=== PATIENT | female | born 1940 | race Caucasian/White ===

== ENCOUNTER 2020-08-25 20:15 | Emergency (ER) | payer MEDICARE, OTHER, SELFPAY ==
[2020-08-25 20:17] VITALS: BP 154/94; PULSE 110; RESP 20; TEMP 36.1; O2SAT 93; BMI 27.3
--- NOTE | 2020-08-25 20:45 | ED.DCSUM_ITS ---
History of Present Illness Chief Complaint: Female C/O Detail of Chief Complaint: Vaginal irritation and blood running down her leg Informant: Patient, Family Onset: Weeks - Is had several episodes of the last several weeks. Context: Sudden Onset Timing: Intermittent Quality: Intermittent bleeding Location: Vagina Current Severity: Mild Maximum Severity: Moderate Worsened by: Patient believes she has a bacterial vaginosis infection Relieved by: Nothing Associated Symptoms: No fever, night sweats, weight loss. Not sexually active Narrative: Patient is an 79-year-old woman status post hysterectomy many years ago for abnormal vaginal bleeding. She was seen earlier this month by the nurse practitioner at the [facility]. Culture was obtained that was consistent with bacterial vaginosis infection. Patient presents because she had blood running down her leg. She denies dysuria, frequency, urgency or hematuria. She denies history of STD. She denies abdominal pain. She denies low back pain. She states the practitioner who saw her did not do a pelvic exam. 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 (4) Type II diabetes mellitus Status: Chronic Past Medical History - Allergies and Home Meds Allergies/Adverse Reactions: Allergies No Known Allergies Allergy (Verified 08/25/20 20:17) Primary Care Physician: Sandra Carter MD [Primary Care Provider] - Pia Braton MD [STAFF PHYSICIAN] - 1 Day for another exam Prior records reviewed: Yes Surgical History: cholecystectomy, hysterectomy Lives: Alone Smoking Status: Unknown if ever smoked Alcohol: None Drugs: None Review of Systems General: Denies: Chills, Fever, Malaise, Subjective, Sweats Eyes: Denies: Visual changes - bilaterally, Blurred Vision - bilaterally ENT: Denies: Rhinorrhea, Sore throat Cardiovascular: Denies: Chest pain, Palpitations Respiratory: Denies: Dyspnea, Cough, Dyspnea on exertion Gastrointestinal: Denies: Abdominal pain, Nausea, Vomiting, Diarrhea Genitourinary: Denies: Dysuria, Hematuria, Frequency Musculoskeletal: Denies: Myalgias, Arthralgias, Neck pain, Back pain, Swelling, Extremity Pain Skin: Denies: Rash, Wounds Neurological: Denies: Headache, Weakness Endocrine: Denies: Polyuria Hematologic: Denies: Easy bruising, Easy bleeding Physical Exam Vital Signs/Narrative: Vital Signs Temp Pulse Resp BP Pulse Ox 08/25/20 20:17 97.0 F L 110 H 20 H 154/94 H 93 Inital Vital Signs reviewed: Yes General: Well nourished, Well developed, No Acute Distress Head: Normocephalic, Atraumatic Eyes: Perrl, EOMI. Negative for: Pale conjunctiva, Scleral icterus ENT: Moist mucous membranes, No rhinorrhea Neck: Supple, Nontender, No lymphadenopathy Cardiovascular: Regular rhythm, No murmurs, Normal S1, Normal S2, Tachycardia Respiratory: No distress, CTA bilaterally, Chest nontender Abdomen: Soft, Nontender, Nondistended, Normal bowel sounds Rectal: Deferred : - - Labia minora are red with ulcerative weepy lesions and are brawny/hard. Patient had significant discomfort on digital exam and speculum exam. There are areas of necrosis involving the labia majora. Back: Nontender, Normal Inspection Extremities: Nontender, No edema Skin: Normal color, No rash Neurological: Alert, Oriented x3, Cranial nerves II-XII grossly intact, Normal Strength, Normal Sensation Psychological: Normal affect Diagnostic/Tx/Re-eval Laboratory Results 08/25/20 08/25/20 20:40 20:40 WBC 10.5 RBC 4.26 Hgb 12.5 Hct 37.1 MCV 87.1 MCH 29.3 MCHC 33.7 RDW Std Deviation 45.8 H RDW Coeff of Carlos 14.5 Plt Count 309 MPV 8.9 Immature Gran % (Auto) 0.500 Neut % (Auto) 63.9 Lymph % (Auto) 21.5 [place] % (Auto) 9.7 Eos % (Auto) 4.0 Baso % (Auto) 0.4 Absolute Neuts (auto) 6.7 Absolute Lymphs (auto) 2.26 Nucleated RBC % 0 Sodium 141 Potassium 3.5 Chloride 104 Carbon Dioxide 29.0 Anion Gap 8 BUN 31 H Creatinine 1.39 H Estim Creat Clear Calc 27.41 Est GFR (MDRD) Af Amer 47 L Est GFR (MDRD) Non-Af 39 L BUN/Creatinine Ratio 22.3 H Glucose 211 H Calcium 9.1 Total Bilirubin 0.30 AST 12 L ALT 15 Alkaline Phosphatase 73 Total Protein 6.9 Albumin 3.1 L Globulin 3.8 Albumin/Globulin Ratio 0.8 L CBC is unremarkable. Comprehensive metabolic panel was marked for a creatinine of 1.39. Blood sugar is elevated 211. - Medical Decision Making Blood work was obtained since she has no records of being in the emergency department since 2019. Blood work that was performed earlier this month revealed normal AST, ALT, alk phos and calcium. Blood sugar was elevated 202 with a normal CO2 and anion gap. Creatinine was slightly elevated 1.32. Based on examination findings spoke with the vice president of human resources on-call for the [facility] Dr. Pia Pastrana. She requested the patient call the office at 8 AM. Someone will see her and perform appropriate biopsies. ED Disposition - Plan for ED Patient: Disposition: Home or Assisted Living Diagnosis: Abnormal vaginal bleeding in postmenopausal patient, Necrotic vaginal lesions suspect neoplas, Elevated serum creatinine, Hyperglycemia due to type 2 diabetes mellitus Instructions: ED Diabetic Hyperglycemia, ED Renal Insufficiency Prescriptions: Hydrocodone Bitart/Apap 5-325 [[place] 5MG-325MG] 1 tab PO Q6H PRN PRN 3 Days #10 tab PRN Reason: Pain Prescription Printed Referrals: Sandra Carter MD [Primary Care Provider] - Pia Barton MD [STAFF PHYSICIAN] - 1 Day for another exam Additional Instructions: Call office at 8 AM to be seen tomorrow for examination and biopsy
[2020-08-25 20:46] LABS: Absolute Lymphocyte Count 2.26 X10^3/uL (0.83-4.51); Absolute Neutrophil Count 6.7 X10^3/uL (2.0-7.7); Basophil# 0.04 X10^3/uL; Basophil% 0.4 % (0-1); Eosinophil# 0.42 X10^3/uL; Hematocrit 37.1 % (37-47); Hemoglobin 12.5 g/dL (12.0-15.0); Lymphocyte # 2.26 X10^3/ul (4.0); Lymphocyte % 21.5 % (19-41); Mean Corp Hgb Conc 33.7 g/dL (32-36); Mean Corpuscular Hgb 29.3 pg (27.0-32.0); Mean Corpuscular Volume 87.1 fL (81-99); Mean Platelet Vol. 8.9 fl (6.2-12.0); Monocyte# 1.02 X10^3/uL; Monocyte% 9.7 % (0-10); NRBC Flagged by Analyzer 0 % (0-5); Neutrophil # 6.71 X10^3/uL (2.7-7.7); Neutrophil % 63.9 % (47-70); Platelet Count 309 K/mm3 (150-450); RBC Distribution Width CV 14.5 % (11.6-14.6); RBC Distribution Width SD 45.8 fl (35.1-43.9); Red Blood Count 4.26 M/mm3 (4.2-5.4); White Blood Count 10.5 K/mm3 (4.4-11.0)
[2020-08-25 21:15] LABS: ALB/GLOB Ratio 0.8 RATIO (0.9-2.4); AST(SGOT) 12 U/L (15-37); Alanine Aminotransfer ALT/SGPT 15 U/L (13-56); Albumin, Serum 3.1 g/dL (3.2-5.0); Alkaline Phosphatase 73 U/L (45-117); Anion Gap 8 (5-15); BUN 31 mg/dL (7-18); BUN/Creat Ratio 22.3 RATIO (10-20); Calcium,Total 9.1 mg/dL (8.5-10.1); Chloride 104 mmol/L (98-107); Creatinine, Serum 1.39 mg/dL (0.55-1.02); EST Glomerular Filtration Rate 39 mL/min (>60); Est Glom Filt Rate - Afr Amer 47 mL/min (>60); Estimated Creatinine Clearance 27.41 ml/min; Globulin 3.8 g/dL (2.2-4.2); Glucose 211 mg/dL (74-106); Potassium 3.5 mmol/L (3.5-5.1); Protein, Total 6.9 g/dL (6.4-8.2); Sodium Level 141 mmol/L (136-145)
[2020-08-25] MEDS: Morphine 4 MG/ML Syringe IV (21:21)
[2020-08-25] MEDS: Ondansetron 4 MG/2 ML Vial IV (21:21)
[2020-08-25 21:44] VITALS: PULSE 92; RESP 14; O2SAT 98
== END 2020-08-25 21:46 | disposition home or self-care (01) ==
LOC: ED 21:02
PROVIDERS: Emergency Provider Emergency Medicine; PCP Internal Medicine
DX: N89.8 Other specified noninflammatory disorders of vagina (principal); N95.0 Postmenopausal bleeding; E11.65 Type 2 diabetes mellitus with hyperglycemia; E78.5 Hyperlipidemia, unspecified; Z85.528 Personal history of other malignant neoplasm of kidney; Z85.51 Personal history of malignant neoplasm of bladder; Z90.710 Acquired absence of both cervix and uterus
CPT/HCPCS: 80053; 85025; 96374; 96375; 99283; A4216; J2405

== ENCOUNTER 2020-08-28 12:33 | Emergency (ER) | payer MEDICARE, OTHER, SELFPAY ==
[2020-08-28 12:34] VITALS: BP 127/70; PULSE 100; RESP 17; TEMP 35.9; O2SAT 96; BMI 28.1
--- NOTE | 2020-08-28 12:52 | ED.DCSUM_ITS ---
History of Present Illness Chief Complaint: Vag Bleeding Informant: Patient, Family Onset: Days Context: Sudden Onset Timing: Intermittent, Waxes and wanes Quality: Bright red blood from vagina that started early this morning Location: Vagina Current Severity: Mild Maximum Severity: Moderate Worsened by: Suspected CVA Relieved by: Nothing Associated Symptoms: Pain Narrative: Patient is an elderly woman who was seen on Wednesday by me. She had minimal vaginal bleeding at that time. She did keep her appointment to be seen on Wednesday by KNOWLEDGE MANAGEMENT CONSULTANT for biopsy. Apparently she was in significant pain and biopsy was not performed. Plan was to perform biopsy under anesthesia. Patient presents because she had spontaneous bleeding that started early this morning. She awoke with blood. She has used several pads. States the pads are saturated. There is no passage of clots. She is complaining of increased pain. She is present on [place] and states the [place] is not controlling the pain. She denies orthostatic symptoms. 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 (4) Type II diabetes mellitus Status: Chronic Past Medical History - Allergies and Home Meds Allergies/Adverse Reactions: Allergies No Known Allergies Allergy (Verified 08/28/20 12:34) Primary Care Physician: Sandra Carter MD [Primary Care Provider] - Prior records reviewed: Yes Surgical History: cholecystectomy, hysterectomy Lives: With Family Smoking Status: Unknown if ever smoked Alcohol: None Drugs: None Review of Systems General: Denies: Chills, Fever, Malaise Eyes: Denies: Visual changes - bilaterally, Blurred Vision - bilaterally ENT: Denies: Rhinorrhea, Sore throat Cardiovascular: Denies: Chest pain, Palpitations Respiratory: Denies: Dyspnea, Cough, Dyspnea on exertion Gastrointestinal: Denies: Abdominal pain, Nausea, Vomiting, Diarrhea Genitourinary: Reports: - - Does report bleeding from her vagina.. Denies: Dysuria, Hematuria, Frequency Musculoskeletal: Denies: Myalgias, Arthralgias, Neck pain, Back pain, Swelling, Extremity Pain Skin: Reports: Wounds. Denies: Rash Neurological: Denies: Headache, Weakness Hematologic: Denies: Easy bruising, Easy bleeding Physical Exam Vital Signs/Narrative: Vital Signs Temp Pulse Resp BP Pulse Ox 08/28/20 12:34 96.6 F L 100 17 127/70 H 96 Inital Vital Signs reviewed: Yes General: Well nourished, Well developed, Acute Distress Head: Normocephalic, Atraumatic Eyes: Perrl, EOMI ENT: Moist mucous membranes, No rhinorrhea Neck: Supple, Nontender, No lymphadenopathy, No JVD Cardiovascular: Regular rate, Regular rhythm, No murmurs, Normal S1, Normal S2 Respiratory: No distress, CTA bilaterally, Chest nontender Abdomen: Soft, Nontender, Nondistended, Normal bowel sounds, No masses : - - Sooner genitalia reveals abnormal appearing labia, introitus with bleeding noted. Her pad is saturated. There is no clots. Back: Nontender, Normal Inspection Extremities: Nontender, No edema Skin: Normal color, No rash Neurological: Alert, Oriented x3, Cranial nerves II-XII grossly intact, Normal Strength, Normal Sensation Psychological: Normal affect, Normal Mood Diagnostic/Tx/Re-eval Laboratory Results 08/28/20 14:00 WBC 9.6 RBC 4.22 Hgb 12.3 Hct 37.4 MCV 88.6 MCH 29.1 MCHC 32.9 RDW Std Deviation 45.5 H RDW Coeff of Carlos 14.2 Plt Count 278 MPV 8.8 H&H is stable. The marketing copywriter for the clinic clinic was paged at 1400. I was informed at 1620 that Amira Flores did call back. A call is now been placed to the marketing copywriter is on-call Patient had continued pain and no relief after 4 morphine. Additional 4 mg of morphine was administered. - Medical Decision Making CBC without differential was obtained to compare H&H and determine if there is a drop in her H&H. Once the H&H has returned we will contact HONING JOB SETTER on-call to determine disposition and plan regarding pain management and bleeding. The nurse practitioner on-call for [employer] did call back, Amira Jewell. She contacted the marketing copywriter who saw her. Spoke with her. Plan is to discharge to home with lidocaine jelly and keep appointment for surgery next week. ED Disposition - Plan for ED Patient: Disposition: Home or Assisted Living Diagnosis: Abnormal vaginal bleeding in postmenopausal patient, Cancer of labia minora Instructions: ED Tumor, Uncertain Cause Prescriptions: Oxycodone HCl/Acetaminophen [Percocet 5/325] 1 tablet PO Q6H PRN PRN 5 Days #20 tablet PRN Reason: Vaginal pain Transmission Status: Sent to [id number] Referrals: Sandra Carter MD [Primary Care Provider] - Staci Bartlett DO [STAFF PHYSICIAN] - Keep Rocco appointment
[2020-08-28] MEDS: Ondansetron 4 MG/2 ML Vial IV (14:04)
[2020-08-28] MEDS: Morphine 4 MG/ML Syringe IV ×2 (14:04→15:41)
--- NOTE | 2020-08-28 14:04 | ED.RN ---
[facility] frozen when trying to sign for documentation of medications, had to redocument meds.
[2020-08-28 14:08] LABS: Hematocrit 37.4 % (37-47); Hemoglobin 12.3 g/dL (12.0-15.0); Mean Corp Hgb Conc 32.9 g/dL (32-36); Mean Corpuscular Hgb 29.1 pg (27.0-32.0); Mean Corpuscular Volume 88.6 fL (81-99); Mean Platelet Vol. 8.8 fl (6.2-12.0); Platelet Count 278 K/mm3 (150-450); RBC Distribution Width CV 14.2 % (11.6-14.6); RBC Distribution Width SD 45.5 fl (35.1-43.9); Red Blood Count 4.22 M/mm3 (4.2-5.4); White Blood Count 9.6 K/mm3 (4.4-11.0)
--- NOTE | 2020-08-28 16:13 | NURSING ---
[address] LOPEZ [phone] LOPEZ [address] CASTRO SHOULD CALL SOON. SHE'S WITH A PATIENT
--- NOTE | 2020-08-28 16:27 | NURSING ---
DR MATTHEW MUÑIZ
[2020-08-28 17:30] VITALS: BP 164/94; PULSE 100; RESP 16; O2SAT 95
--- NOTE | 2020-08-28 17:31 | ED.RN ---
IV DC'ED, CATHETER INTACT, SMALL GAUZE DRESSING PLACED. DISCHARGE INSTRUCTIONS GIVEN TO AND REVIEWED WITH PATIENT, PATIENT DENIES QUESTIONS OR CONCERNS AND VOICES UNDERSTANDING OF DISCHARGE INSTRUCTIONS. PT TO PRIVATE VEHICLE VIA WHEELCHAIR.
== END 2020-08-28 17:32 | disposition home or self-care (01) ==
PROVIDERS: Emergency Provider Emergency Medicine; PCP Internal Medicine
DX: C51.1 Malignant neoplasm of labium minus (principal); N95.0 Postmenopausal bleeding; E11.9 Type 2 diabetes mellitus without complications; E78.5 Hyperlipidemia, unspecified; Z79.899 Other long term (current) drug therapy; Z85.51 Personal history of malignant neoplasm of bladder; Z85.528 Personal history of other malignant neoplasm of kidney
CPT/HCPCS: 85027; 96374; 96375; 96376; 99283; A4216; J2405

== ENCOUNTER 2020-09-05 08:13 | Day surgery (SDC) | payer MEDICARE, OTHER, SELFPAY ==
--- NOTE | 2020-09-02 17:55 | PCM.HPOB.BLA ---
- Problem List (1) Vulvar pain Status: Acute History and Physical Date of Admission: 09/05/20 Irish Monzon is a 79 year old female who presents for problem visit?vulvar pain.? ? HPI:? ? She is here today with her daughter and POA.? ? Has had vaginal pain and bleeding for 3 weeks. She feels as if her vagina is sore and raw. She notes dysuria and hematuria as well.?On last day of antibiotics for UTI per PCP.?Pain is worse with sitting. She went into the ED last night and was given morphine for the pain. She reports in the ER they were able to complete an exam after she was given pain medication, and a vaginal mass was noted. Not currently sexually active. Recently saw a microbiology manager for this and was screened for infection - she screened positive for BV. H/o bladder cancer and h/o hysterectomy. Has diabetes?and she recently stopped all medications. The patient lives alone at home. ? PAST MEDICAL HISTORY PAST MEDICAL HISTORY Diagnosis Date ? Abnormal mammogram ? ? Bladder cancer (HCC) 2009 ? Depression ? ? Diabetes mellitus without mention of complication ? ? Diabetes mellitus ? Gastroesophageal reflux disease without esophagitis ? ? GERD (gastroesophageal reflux disease) ? ? Hematuria ? ? Hemorrhoids ? ? Hypercholesteremia ? ? Hypomagnesemia ? ? Insomnia ? ? Migraine ? ? Non-compliance ? ? Osteoarthritis of both knees ? ? PND (post-nasal drip) ? ? Stage 2 chronic kidney disease ? ? tachycardia ? ? Trigger finger ? ? Unspecified essential hypertension ? ? Essential hypertension ? Vitamin D deficiency ? PAST SURGICAL HISTORY PAST SURGICAL HISTORY Procedure Laterality Date ? BIOPSY OF KIDNEY,OPEN EXPOS ? 1982 ? ESOPHAGOGASTRIC FUNDOPLASTY ? ? ? HEMORRHOIDECTOMY ? 1994 ? OTHER ? 2009 ? bladder tumor removal ? OTHER SURGICAL HISTORY (PLEASE SPECIFY) HX Left ? ? left renal stent ? SC ANESTH,REPAIR UPPER ABD HERNIA NOS ? 1995/1996 ? SC ANESTH,VAGINAL HYSTERECTOMY ? ? ? REMOVAL GALLBLADDER ? ? ? REPAIR INCISIONAL HERNIA,REDUCIBLE ? ? ? Hernia repair, incisional - laparoscopic ? TOTAL KNEE REPLACEMENT Left 2003 FAMILY HISTORY FAMILY HISTORY Problem Relation Age of Onset ? Stroke Father ? SOCIAL HISTORY Social History ? Tobacco Use ? Smoking status: Never Smoker ? Smokeless tobacco: Never Used Substance Use Topics ? Alcohol use: No ? Drug use: No CURRENT MEDICATIONS Current Outpatient Medications Medication Sig ? metroNIDAZOLE (FLAGYL) 500 mg tablet Take 1 tablet by mouth twice daily for 7 days. ? nitrofurantoin monohydrate and macrocrystal (MACROBID) 100 mg capsule Take 1 capsule by mouth twice daily with meals for 7 days. ? amitriptyline (ELAVIL) 100 mg tablet Take 100 mg by mouth daily at bedtime. ? ? lidocaine 4 % gel 1 application of small amount to affected area up to 7 times a day as needed for pain control. ? DIFLUCAN 150 mg tablet Take 1 tablet by mouth once daily for 2 days. Take 1 pill now and then take additional pill 3 days later (Patient not taking: Reported on 08/26/2020 ) ? pioglitazone (ACTOS) 15 mg tablet Take 1 tablet by mouth once daily. (Patient not taking: Reported on 08/21/2020 ) ? LIPITOR 10 MG TAB Take one(1) tablet daily. ? PREVACID 30 MG CAP Take one(1) tablet daily. ? HYDROCHLOROTHIAZIDE 25 MG TAB Take one(1) tablet daily. ? LEXAPRO 10 MG TAB Take one(1) tablet daily. ? GLIPIZIDE SR 2.5 MG TAB Take one(1) tablet daily. ? No current facility-administered medications for this visit. Allergies As of Date: 08/26/2020 (No Known Allergies) Fully Assessed ?08/21/2020 ? ? REVIEW OF SYSTEMS Abdomen:?No abdominal pain, nausea, vomiting.? Bladder:?+Dysuria.? Expanded ROS:?No fevers or chills.? Allergies and current medication updated:Yes ? EXAM:?Wt 164 lb (74.4kg)? ? ? GENERAL:?pleasant,??female in no apparent distress CHEST:?Normal inspiratory effort PELVIC:?Limited exam. Unable to touch patient due to pain. Bilateral labia majora and minora are swollen, erythematous with several small ulcerations present. There is a thick white plaque noted along the right labia minora.? NEURO:?exam grossly non-focal EXTREMITIES:?normal ? ASSESSMENT AND PLAN:?? Encounter Diagnosis ? ? ICD-10-CM ? 1. Vulvar pain R10.2 lidocaine 4 % gel 2. Vulvar lesion N90.89 lidocaine 4 % gel 3. Vulvar ulceration N76.6 ? 4. Vaginal bleeding N93.9 ? ER visit reviewed. Discussed patient with CNM who evaluated the patient as well. ? Discussed vulvar care and hygiene measure. ?Reviewed using warm compresses and warm soaks, ice packs PRN, lidocaine gel PRN, dermoplast PRN, barrier ointment. ? Discussed possible etiologies. WBC normal in ED. Afebrile. To start Flagyl for BV. Concern for malignancy based on exam and discussed this with pt and POA. Unable to perform biopsies today due to pain. Discussed EUA, vulvar biopsies, and possible vaginal biopsies in OR including r/b/a. Consent signed by POA and patient and POA would like to proceed with surgery. Discussed will need medical clearance from PCP. Will route chart to PCP and to schedule surgery once cleared. ? Her daughter is to fax over POA information.? ? Staci Bartlett,?DO
[2020-09-04 11:45] LABS: Hematocrit 38.6 % (37-47); Hemoglobin 12.5 g/dL (12.0-15.0); Mean Corp Hgb Conc 32.4 g/dL (32-36); Mean Corpuscular Hgb 29.2 pg (27.0-32.0); Mean Corpuscular Volume 90.2 fL (81-99); Platelet Count 305 K/mm3 (150-450); RBC Distribution Width CV 14.6 % (11.6-14.6); RBC Distribution Width SD 47.7 fl (35.1-43.9); Red Blood Count 4.28 M/mm3 (4.2-5.4); White Blood Count 10.9 K/mm3 (4.4-11.0)
[2020-09-04 12:15] LABS: ALB/GLOB Ratio 0.8 RATIO (0.9-2.4); AST(SGOT) 23 U/L (15-37); Alanine Aminotransfer ALT/SGPT 29 U/L (13-56); Albumin, Serum 3.3 g/dL (3.2-5.0); Alkaline Phosphatase 79 U/L (45-117); Anion Gap 6 (5-15); BUN 26 mg/dL (7-18); BUN/Creat Ratio 17.9 RATIO (10-20); Calcium,Total 9.2 mg/dL (8.5-10.1); Chloride 104 mmol/L (98-107); Creatinine, Serum 1.45 mg/dL (0.55-1.02); EST Glomerular Filtration Rate 37 mL/min (>60); Est Glom Filt Rate - Afr Amer 45 mL/min (>60); Globulin 3.9 g/dL (2.2-4.2); Glucose 172 mg/dL (74-106); Protein, Total 7.2 g/dL (6.4-8.2); Sodium Level 137 mmol/L (136-145)
[2020-09-05] VITALS (13 sets, daily range): BP systolic 110–157; BP diastolic 65–85; PULSE 94–116; RESP 12–18; TEMP 37–37.7; O2SAT 91–99; BMI 27.6
--- NOTE | 2020-09-05 | IMM_PTH ---
PATIENT: FRANCES EVANGELISTA LOC: [facility] [place] U#:[id number] AGE/SX: 79/F ROOM: RE09/05/[address]: Dr. Staci Bartlett DO : 1940 BED: DIS: 09/05/2020 SPEC #: [id number] RECD: 09/06/20 15:24 STATUS: LATRICIA REQ #: [id number] DEIDRE: 09/05/20 00:[address]: Staci Bartlett DEPT: IMMUNOHISTOCHEMISTRY RECD BY: Eden Jimenez ENTERED: 09/06/20 15:25 SP TYPE: IMMUNO OTHR DR: Dr. Sandra Carter MD Tissues: B - Labium majus Procedures: p16 (initial) PHYSICIAN & INSTITUTION [place] [address] SPECIMEN INFORMATION: Tissue Source: B - Right labia majora Clinical Info: Vulvar pain Specimen Number: [id number] Radha CPT code: 78188 METHODOLOGY: Deparaffinized sections of prefer/formalin-fixed tissue or PAP/DQ stained slides are incubated with monoclonal/polyclonal antibodies/oligonucleotide probes. Localization is made via biotin free immunoperoxidase method. Appropriate controls are performed and reacted as expected. Results on target cell population are indicated in the following table: RESULTS: ANTIBODY / CLONE RESULT Block B P16 (E6H4) negative These tests were developed and their performance characteristics determined by [facility]. They may not have been cleared or approved by the U.S. Food and Drug Administration. The FDA has determined that such clearance or approval is not necessary. The above immunohistochemical/dualISH markers are ordered and reviewed by the Pathologist. INTERPRETATION: B. 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 DEANDRE:carson 09/09/2020
--- NOTE | 2020-09-05 | IMM_PTH ---
PATIENT: FRANCES EVANGELISTA LOC: [facility] [place] U#:[id number] AGE/SX: 79/F ROOM: RE09/05/[address]: Dr. Staci Bartlett DO : 1940 BED: DIS: 09/05/2020 SPEC #: [id number] RECD: 09/06/20 15:24 STATUS: LATRICIA REQ #: [id number] DEIDRE: 09/05/20 00:[address]: Staci Bartlett DEPT: IMMUNOHISTOCHEMISTRY RECD BY: Eden Jimenez ENTERED: 09/06/20 15:25 SP TYPE: IMMUNO OTHR DR: Dr. Sandra Carter MD Tissues: B - Labium majus Procedures: p16 (initial) PHYSICIAN & INSTITUTION [place] [address] SPECIMEN INFORMATION: Tissue Source: B - Right labia majora Clinical Info: Vulvar pain Specimen Number: [id number] B CPT code: 85292 METHODOLOGY: Deparaffinized sections of prefer/formalin-fixed tissue or PAP/DQ stained slides are incubated with monoclonal/polyclonal antibodies/oligonucleotide probes. Localization is made via biotin free immunoperoxidase method. Appropriate controls are performed and reacted as expected. Results on target cell population are indicated in the following table: RESULTS: ANTIBODY / CLONE RESULT Block B P16 (E6H4) positive, focal minimal patchy staining These tests were developed and their performance characteristics determined by [facility]. They may not have been cleared or approved by the U.S. Food and Drug Administration. The FDA has determined that such clearance or approval is not necessary. The above immunohistochemical/dualISH markers are ordered and reviewed by the Pathologist. INTERPRETATION: B. 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 Tiffany 09/09/2020 DEANDRE:carson 09/17/2020 Case has been reviewed in consultation with Dr. Hendrickson who concurs with the above diagnosis. IDC:AM
[2020-09-05 09:01] LABS: Bedside Glucose 182 mg/dL (70-110)
[2020-09-05] MEDS: Lactated Ringers 1,000 ML 100 ML IV (09:11)
--- NOTE | 2020-09-05 09:30 | DCINST_ITS ---
- Discharge Diagnoses Current Active Problems: Current Active and Chronic Problems Vulvar pain (Acute) You will use the following diet at home:: No restrictions Your food should be the consistency of: Regular Discharge Activity: May Shower, May Take a Tub Bath May resume sexual activity in: 1 week - nothing in the vagina for 1 week Ice area for (Minutes): 15 Weight Bearing Status: Weight bearing as tolerated Lifting Restrictions: None Call your doctor if your incision/area has: Sudden Increased Bleeding, Increased Pain/ Swelling, Increased Redness, Foul Smelling Discharge, Swelling at the incision site Call your doctor if you observe: Fever of 101 or Higher, Inability to urinate, Inability to have a bowel movement, Using more than one pad per hour, Shortness of breath, Dizziness, Fainting spells, Swelling in the ankles, Chest pain, Increased palpitations (irregular heartbeat), Calf discomfort, Uncontrolled pain Allergies/Adverse Reactions: Allergies No Known Allergies Allergy (Verified 09/05/20 08:56) Medications to take at Discharge Amitriptyline HCl [Elavil] 100 mg PO QHS 09/04/16 Pioglitazone [Actos] 15 mg PO DAILY 08/25/20 Metronidazole 500 mg PO BID 08/28/20 Hydrocodone-Acetamin 5-325 mg 09/05/20 Percocet 5-325 mg Tablet 09/05/20 Primary Care Physician: Sandra Carter MD [Primary Care Provider] - Test Results: Test results from this visit will be discussed in further detail at your follow- up appointment, if applicable. Please Follow Up With: Staci Bartlett DO When: 1 week
--- NOTE | 2020-09-05 09:45 | VUL_PTH ---
PATIENT: FRANCES EVANGELISTA LOC: [facility] [place] U#:[id number] AGE/SX: 79/F ROOM: RE09/05/[address]: Dr. Staci Bartlett DO : 1940 BED: DIS: 09/05/2020 SPEC #: [id number] RECD: 09/05/20 11:49 STATUS: LATRICIA JOAN #: [id number] DEIDRE: 09/05/20 09:[address]: Staci Bartlett DEPT: SURGICAL PATHOLOGY RECD BY: Amina Garnica ENTERED: 09/05/20 12:32 SP TYPE: VULVA BX OTHR DR: Dr. Sandra Carter MD Tissues: A - Labium, NOS B - Labium, NOS C - Labium, NOS D - Labium, NOS Procedures: Surgery Specimen Level IV HEADER OPERATION: Exam under anesthesia, vulvar biopsies PRE-OP DIAGNOSIS: Vulvar pain TISSUE SUBMITTED: A - Left labia majora anterior, B - Right labia majora, C - Right labia minora, D - Left labia majora posterior MICROSCOPIC DIAGNOSIS A. Left labia majora anterior, punch biopsy: Invasive wall differentiated squamous cell carcinoma. B. Right labia majora, biopsy: Invasive wall differentiated squamous cell carcinoma. See comment. C. Right labia minora, biopsy: Invasive wall differentiated squamous cell carcinoma. D. Left labia majora posterior, biopsy: Invasive wall differentiated squamous cell carcinoma. SJ:carson 09/06/2020 COMMENT B. Immunohistochemistry ([id number]) for surrogate HPV marker (p16) will be performed and results will be reported separately. MICROSCOPIC DESCRIPTION Slides are reviewed. GROSS DESCRIPTION A - Received in fixative is one container labeled with the patient's name and designated left labia majora anterior. The specimen consists of a punch biopsy of singleton-white skin measuring 0.4 cm in diameter and 0.3 cm in length. Also present in the container is a piece of blood clot. The entire specimen is submitted in one cassette. B - Received in fixative is one container labeled with the patient's name and designated right labia majora. The specimen consists of a punch biopsy of singleton-white skin measuring 0.5 cm in diameter and 0.6 cm in length. The specimen is bisected and submitted entirely in one cassette. C - Received in fixative is one container labeled with the patient's name and designated right labia minora. The specimen consists of a piece of singleton-white skin measuring 0.5 x 0.4 x 0.2 cm. The specimen is totally submitted in one cassette. D - Received in fixative is one container labeled with the patient's name and designated left labia majora posterior. The specimen consists of multiple irregular fragments of singleton soft tissue that in aggregate measure 1.5 x 0.5 x 0.3 cm. The specimen is totally submitted in one cassette. / DEANDRE:carson 09/05/20 TC:0 CPT: 59005 x4
[2020-09-05] MEDS: Lidocaine 1% /Epi 1:100 (20ml) 20 ML Vial (09:48)
--- NOTE | 2020-09-05 10:11 | PCM.OPRPT ---
Problem List (1) Vulvar pain Status: Acute Report of Operation Date of Procedure: 09/05/20 Pre-Operative Diagnosis: Vulvar pain, vulvar swelling, vulvar ulceration Post-Operative Diagnosis: As above Surgery/Procedure Performed:: Exam under anesthesia, vulvar biopsies Description of Surgical Findings:: Atrophic but otherwise normal appearing vaginal mucosa and vaginal cuff. No adnexal masses palpated. No vaginal masses noted. The bilateral labia major and minora are firm to palpation. There is a thick white plaque over the right labia minora and near the clitoral nur and urethra. The right labia minora is somewhat necrotic with ulcerations present. There are minimal acetowhite changes noted along the left labia major near the posterior fourchette. The left labia minora is firm and erythematous appearing. There is a 4x4 area of firmness, erythema, ulcerations, and necrotic tissue over the clitoral nur and just above the right and left labia minoras, and involving the right labia minora. Type of Anesthesia:: MAC Special Medications: None Specimen's removed: 4 vulvar biopsies were obtained - right labia minora, right labia majora, left labia majora anterior, left labia majora posterior Drains: None Estimated Blood Loss (mL): < 50 cc Description of Procedure: Start time 0948 Stop time 1008 The patient was taken to the operating room where MAC anesthesia was found be adequate. She was prepped and draped in the dorsal lithotomy position using yellowfin stirrups. A speculum was placed into the vagina. The vaginal mucosa was atrophic appearing but otherwise normal. There were no lesions or masses visualized in the vagina. A bimanual exam was performed and there were no masses palpated in the vagina and no ovarian masses palpated. The speculum was removed. The vulva was examined and findings were noted as above. 1% lidocaine was injected at all biopsy sites. A 5 mm Mckee punch biopsy was used to take a biopsy of the right labia majora and right labia minora. Biopsies were difficult to obtain as the tissue was necrotic. A 3 mm Mckee punch biopsy was used to obtain biopsies at the left labia majora anteriorly and posteriorly. The specimens were sent to pathology for review. The biopsy sites were made hemostatic with silver nitrate. All instruments were removed. Sponge and instrument counts were correct. The patient was taken recovery room in stable condition and hemostasis was noted at the end of the case. Grafts/Implants Used: None - Complications None - Admit VTE Documentation VTE Present on Admission: No VTE Mechan Device Prophylaxis: SCD's VTE Pharm Prophylaxis ordered?: No
[2020-09-05] MEDS: HYDROcodone Bitartrate/Apap 5/325 Tablet PO (12:44)
== END 2020-09-05 13:34 | disposition home or self-care (01) ==
LOC: SDC 08:14 → AC 08:14
PROVIDERS: PCP Internal Medicine; Referring Provider Obstetrics & Gynecology; Visit Provider Obstetrics & Gynecology
PROC: (CPT 57410; principal; 2020-09-05 09:35)
DX: C51.8 Malignant neoplasm of overlapping sites of vulva (principal); R31.9 Hematuria, unspecified; R30.0 Dysuria; I12.9 Hypertensive chronic kidney disease with stage 1 through stage 4 chronic kidney disease, or unspecified chronic kidney disease; E11.22 Type 2 diabetes mellitus with diabetic chronic kidney disease; N18.2 Chronic kidney disease, stage 2 (mild); I27.20 Pulmonary hypertension, unspecified; E78.00 Pure hypercholesterolemia, unspecified; M17.0 Bilateral primary osteoarthritis of knee; K21.9 Gastro-esophageal reflux disease without esophagitis; F32.9 Major depressive disorder, single episode, unspecified; Z78.0 Asymptomatic menopausal state; Z79.84 Long term (current) use of oral hypoglycemic drugs; Z79.899 Other long term (current) drug therapy; Z85.51 Personal history of malignant neoplasm of bladder; Z90.710 Acquired absence of both cervix and uterus
CPT/HCPCS: 56605; 56606 ×3; 36415; 80053; 82962; 85027; 86850; 86900; 86901; 87426; 88305; 88342; C9803; J7120; J2405

== ENCOUNTER 2020-09-23 17:14 | Emergency (ER) | payer MEDICARE, OTHER, SELFPAY ==
[2020-09-05 09:01] VITALS: BMI 27.6
[2020-09-23 17:15] VITALS: BP 128/107; PULSE 99; RESP 16; TEMP 36.7; O2SAT 99; BMI 28.1
--- NOTE | 2020-09-23 17:24 | ED.VIS.GEN ---
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 The patient was diagnosed at the end of August. She had biopsy under anesthesia. Her final pathology has come back and she is actually scheduled to see [facility] Onc tomorrow in [place]. She states that she has been taking Percocet intermittently to help with the pain. She states over the past 2 days, her pain is worsened. She states this is her normal chronic pain. She denies any difficulty urinating. She denies any fevers or chills. She denies any nausea or vomiting. She states she just cannot get comfortable. She has not started any treatment yet but has had a PET scan. Prior similar symptoms: Yes Recent Illness/Hospitalization: No Past Medical History - Allergies and Home Meds Allergies/Adverse Reactions: Allergies No Known Allergies Allergy (Verified 09/23/20 17:21) Primary Care Physician: Sandra Carter MD [Primary Care Provider] - Prior records reviewed: Yes Past Medical History: - - Invasive squamous cell cancer of the vulva Surgical History: cholecystectomy, hysterectomy Smoking Status: Never smoker Review of Systems General: Denies: Chills, Fever, Sweats Eyes: Denies: Visual changes - bilaterally, Diplopia ENT: Denies: Rhinorrhea, Sore throat Cardiovascular: Denies: Chest pain, Palpitations Respiratory: Denies: Dyspnea, Cough, Dyspnea on exertion Gastrointestinal: Denies: Abdominal pain, Nausea, Vomiting, Diarrhea, Melena, Hematochezia Genitourinary: Denies: Dysuria, Hematuria, Frequency Musculoskeletal: Reports: Back pain. Denies: Extremity Pain Skin: Denies: Rash, Wounds Neurological: Denies: Headache, Weakness, Numbness Physical Exam Vital Signs/Narrative: Vital Signs Temp Pulse Resp BP Pulse Ox 09/23/20 17:15 98.0 F 99 16 128/107 H 99 Inital Vital Signs reviewed: Yes General: Well nourished, Well developed, No Acute Distress Head: Normocephalic, Atraumatic Eyes: Perrl, EOMI ENT: Moist mucous membranes, No rhinorrhea Neck: Supple, Nontender Cardiovascular: Regular rate, Regular rhythm, No murmurs Respiratory: No distress, CTA bilaterally, Chest nontender Abdomen: Soft, Nontender, Nondistended, Normal bowel sounds Back: Nontender, Normal Inspection Extremities: Nontender, No edema Skin: Normal color, No rash Neurological: Alert, Oriented x3, Cranial nerves II-XII grossly intact, Normal Strength, Normal Sensation Psychological: Normal affect, Normal Mood Diagnostic/Tx/Re-eval Abnormal Lab Results 09/23/20 09/23/20 17:22 17:22 WBC 10.4 RBC 4.47 Hgb 13.3 Hct 39.2 MCV 87.7 MCH 29.8 MCHC 33.9 RDW Std Deviation 45.3 H RDW Coeff of Carlos 14.2 Plt Count 333 MPV 8.9 Immature Gran % (Auto) 0.300 Neut % (Auto) 63.3 Lymph % (Auto) 22.6 [place] % (Auto) 10.2 H Eos % (Auto) 3.1 Baso % (Auto) 0.5 Absolute Neuts (auto) 6.6 Absolute Lymphs (auto) 2.36 Nucleated RBC % 0 Sodium 141 Potassium 3.4 L Chloride 105 Carbon Dioxide 28.0 Anion Gap 8 BUN 26 H Creatinine 1.56 H Estim Creat Clear Calc 22.37 Est GFR (MDRD) Af Amer 41 L Est GFR (MDRD) Non-Af 34 L BUN/Creatinine Ratio 16.7 Glucose 110 H Calcium 9.6 Total Bilirubin 0.40 AST 10 L ALT 14 Alkaline Phosphatase 64 Total Protein 7.6 Albumin 3.4 Globulin 4.2 Albumin/Globulin Ratio 0.8 L - Medical Decision Making The patient presents with rather significant pain. She does have significant vulvar lesions and pain that is exacerbated. Patient was given 2 small aliquots of Dilaudid with some improvement. She was still rather painful. Her labs were obtained were unremarkable. With fentanyl, her pain was improved. I am going to dispense the patient a fentanyl patch as I do feel this will help control her significant pain along with breakthrough oxycodone. I do not feel that hospitalizing the patient tonight would be in her best interest that she is actually scheduled to see her oncologist in [place] tomorrow. Both she and her daughter are agreeable with this plan of care. She will be discharged home. Impression 1. Significant pelvic pain secondary to vulvar cancer ED Disposition - Plan for ED Patient: Instructions: ED Pelvic Pain, Unknown Cause Prescriptions: Oxycodone [Oxyir] 5 mg PO Q6H PRN PRN 5 Days #20 tab PRN Reason: Pain Score 6-10 Prescription Printed Referrals: Sandra Carter MD [Primary Care Provider] -
[2020-09-23] MEDS: HYDROmorphone 1 MG/ML Syringe IV (17:30)
[2020-09-23] MEDS: Ondansetron 4 MG/2 ML Vial IV (17:30)
[2020-09-23 17:37] LABS: Absolute Lymphocyte Count 2.36 X10^3/uL (0.83-4.51); Absolute Neutrophil Count 6.6 X10^3/uL (2.0-7.7); Basophil# 0.05 X10^3/uL; Basophil% 0.5 % (0-1); Eosinophil# 0.32 X10^3/uL; Eosinophils% 3.1 % (0-5); Hematocrit 39.2 % (37-47); Hemoglobin 13.3 g/dL (12.0-15.0); Lymphocyte # 2.36 X10^3/ul (4.0); Lymphocyte % 22.6 % (19-41); Mean Corp Hgb Conc 33.9 g/dL (32-36); Mean Corpuscular Hgb 29.8 pg (27.0-32.0); Mean Corpuscular Volume 87.7 fL (81-99); Mean Platelet Vol. 8.9 fl (6.2-12.0); Monocyte# 1.06 X10^3/uL; Monocyte% 10.2 % (0-10); NRBC Flagged by Analyzer 0 % (0-5); Neutrophil # 6.61 X10^3/uL (2.7-7.7); Neutrophil % 63.3 % (47-70); Platelet Count 333 K/mm3 (150-450); RBC Distribution Width CV 14.2 % (11.6-14.6); RBC Distribution Width SD 45.3 fl (35.1-43.9); Red Blood Count 4.47 M/mm3 (4.2-5.4); White Blood Count 10.4 K/mm3 (4.4-11.0)
[2020-09-23 17:50] LABS: ALB/GLOB Ratio 0.8 RATIO (0.9-2.4); AST(SGOT) 10 U/L (15-37); Alanine Aminotransfer ALT/SGPT 14 U/L (13-56); Albumin, Serum 3.4 g/dL (3.2-5.0); Alkaline Phosphatase 64 U/L (45-117); Anion Gap 8 (5-15); BUN 26 mg/dL (7-18); BUN/Creat Ratio 16.7 RATIO (10-20); Calcium,Total 9.6 mg/dL (8.5-10.1); Chloride 105 mmol/L (98-107); Creatinine, Serum 1.56 mg/dL (0.55-1.02); EST Glomerular Filtration Rate 34 mL/min (>60); Est Glom Filt Rate - Afr Amer 41 mL/min (>60); Estimated Creatinine Clearance 22.37 ml/min; Globulin 4.2 g/dL (2.2-4.2); Glucose 110 mg/dL (74-106); Potassium 3.4 mmol/L (3.5-5.1); Protein, Total 7.6 g/dL (6.4-8.2); Sodium Level 141 mmol/L (136-145)
[2020-09-23] MEDS: HYDROmorphone 0.5 MG/0.5 ML SYRINGE IV (18:07)
[2020-09-23] MEDS: fentaNYL 100 MCG/2 ML Ampul 50 MCG IV (19:00)
[2020-09-23 19:40] VITALS: BP 158/97; PULSE 81; RESP 18; O2SAT 90
[2020-09-23] MEDS: Ondansetron ODT 4 MG Tablet PO (19:49)
--- NOTE | 2020-09-23 19:57 | ED.RN ---
IV removed and then when getting patient dressed in bed she began nauseated. zofran ODT given and laid back in bed. daughter at bedside and attentive.
== END 2020-09-23 20:42 | disposition home or self-care (01) ==
PROVIDERS: Emergency Provider Emergency Medicine; PCP Internal Medicine
DX: G89.3 Neoplasm related pain (acute) (chronic) (principal); C51.9 Malignant neoplasm of vulva, unspecified; Z79.899 Other long term (current) drug therapy
CPT/HCPCS: 80053; 85025; 96361; 96374; 96375; 96376; 99285; J7040; A4216; J2405

== ENCOUNTER 2020-10-13 20:29 | Inpatient (IN) | payer MEDICARE, OTHER, SELFPAY ==
[2020-10-13 20:30] VITALS: BP 145/86; PULSE 100; RESP 18; TEMP 36.8; O2SAT 96; BMI 26.4
--- NOTE | 2020-10-13 21:07 | EKG12_ITS ---
Test Reason : SWELLING Blood Pressure : / mmHG Vent. Rate : 098 BPM Atrial Rate : 098 BPM P-R Int : 142 ms QRS Dur : 090 ms QT Int : 350 ms P-R-T Axes : 066 050 084 degrees QTc Int : 446 ms Normal sinus rhythm Possible Left atrial enlargement Nonspecific T wave abnormality Abnormal ECG Confirmed by CYNTHIA KRAUSE, JUANIS ([id number]), video editor [place] FELTON ([id number]) on 10/16/2020 7:54:32 AM Referred By: DALILA Confirmed By:JUANIS MARIE MD
--- NOTE | 2020-10-13 21:09 | CT_ITS ---
STUDY: CT ABDOMEN AND PELVIS WITHOUT CONTRAST REASON FOR EXAM: Female, 79 years old. Lower abdominal pain. Invasive squamous cell carcinoma of the vulva. Bladder cancer 2011. TECHNIQUE: Transaxial images were obtained from the dome of the diaphragm to the symphysis pubis with oral contrast, and without intravenous contrast. Sagittal and coronal images were reconstructed. Individualized dose optimization techniques were used for this CT. COMPARISON: 08/12/2015 CT abdomen and pelvis. FINDINGS: Partially visualized lower chest: Lung bases unremarkable. Liver: No concerning lesions. Gallbladder and biliary tree: Status post cholecystectomy. Mild common bile duct dilation chronic and unchanged. Pancreas: No pancreatic lesions or inflammation. Spleen: Normal size, no splenic lesions. Adrenal glands: No concerning masses. Kidneys and ureters: No hydronephrosis or renal stones. No concerning masses. No ureteral dilation. Large bilateral renal cysts, with some calcifications within right-sided cysts, similar to previous. Bowel: Normal appendix. No obstruction or inflammation of the bowel. Sigmoid colon diverticulosis, no diverticulitis. Urinary bladder: No stones or wall thickening. Reproductive: Status post hysterectomy. 2 right vulvar thick-walled cystic masses , 2.9 cm more anteriorly and 3.4 cm more posteriorly, with adjacent skin thickening and subcutaneous edema. Vascular: No abdominal aortic aneurysm. Retroperitoneal and peritoneal spaces: No ascites or free air. Osseous: No acute osseous abnormality. Abdominal and pelvic wall: Moderate bilateral inguinal lymphadenopathy. Skin thickening and subcutaneous edema of the pannus. Chronic postoperative changes right and anterior abdominal wall with mesh. CT/Abdomen/Pel W ORAL Cont Only IMPRESSION: Necrotic-appearing right-sided vulvar masses compatible with the patient''s history of squamous cell carcinoma. Adjacent edema and skin thickening could represent cellulitis or noninfectious edema. Bilateral inguinal adenopathy suspicious for metastatic disease less likely reactive. Other chronic findings as above. Electronically Signed: Jeromy Galvez MD at 23:27 EDT Tel , Service support ,
[2020-10-13 21:34] LABS: Absolute Lymphocyte Count 1.55 X10^3/uL (0.83-4.51); Absolute Neutrophil Count 8.1 X10^3/uL (2.0-7.7); Basophil# 0.03 X10^3/uL; Basophil% 0.3 % (0-1); Eosinophils% 3.6 % (0-5); Hematocrit 35.3 % (37-47); Hemoglobin 11.4 g/dL (12.0-15.0); Lymphocyte # 1.55 X10^3/ul (4.0); Lymphocyte % 13.9 % (19-41); Mean Corp Hgb Conc 32.3 g/dL (32-36); Mean Corpuscular Hgb 28.9 pg (27.0-32.0); Mean Corpuscular Volume 89.4 fL (81-99); Mean Platelet Vol. 8.7 fl (6.2-12.0); Monocyte# 1.09 X10^3/uL; Monocyte% 9.8 % (0-10); NRBC Flagged by Analyzer 0 % (0-5); Neutrophil # 8.05 X10^3/uL (2.7-7.7); Neutrophil % 72.1 % (47-70); Platelet Count 301 K/mm3 (150-450); RBC Distribution Width SD 45.3 fl (35.1-43.9); Red Blood Count 3.95 M/mm3 (4.2-5.4); White Blood Count 11.2 K/mm3 (4.4-11.0)
--- NOTE | 2020-10-13 21:34 | RAD_ITS ---
STUDY: X-RAY CHEST REASON FOR EXAM: Female, 79 years old. Edema. TECHNIQUE: AP COMPARISON: 06/10/2012 CXR FINDINGS: No evidence of pneumonia, pulmonary edema, pneumothorax or pleural effusion. Cardiac silhouette, hilar and mediastinal contours with no acute findings. Heart size normal. Atherosclerosis of the thoracic aorta. Degenerative osseous changes with no acute osseous abnormality. RAD/Chest 1 View (Portable) IMPRESSION: No acute findings. Electronically Signed: Jeromy Galvez MD at 22:28 EDT Tel , Service support ,
[2020-10-13 22:15] LABS: ALB/GLOB Ratio 0.8 RATIO (0.9-2.4); AST(SGOT) 12 U/L (15-37); Alanine Aminotransfer ALT/SGPT 18 U/L (13-56); Alkaline Phosphatase 60 U/L (45-117); Anion Gap 6 (5-15); BUN 46 mg/dL (7-18); BUN/Creat Ratio 14.6 RATIO (10-20); Calcium,Total 9.1 mg/dL (8.5-10.1); Chloride 99 mmol/L (98-107); Creatinine, Serum 3.16 mg/dL (0.55-1.02); EST Glomerular Filtration Rate 15 mL/min (>60); Est Glom Filt Rate - Afr Amer 18 mL/min (>60); Estimated Creatinine Clearance 12.06 ml/min; Glucose 143 mg/dL (74-106); Potassium 2.9 mmol/L (3.5-5.1); Sodium Level 134 mmol/L (136-145)
[2020-10-13 22:34] LABS: International Normalized Ratio 1.2; Partial Thromboplast Time 30.5 Seconds (24.1-36.2); Prothrombin Time (Protime)PT. 14.4 SECONDS (11.7-14.9)
[2020-10-13 22:44] LABS: Mucous, Urine 0 SEEN /hpf (<or=2+)
[2020-10-13 22:46] LABS: Color, Urine Yellow (Yellow); Glucose, Dipstick Normal (Normal); Ketone-Dipstick Negative (Negative); Leukocyte Esterase-Dipstick 500 /ul (Negative); Nitrite-Dipstick Negative (Negative); Occult Blood-Urine 150 /ul (Negative); Protein-Dipstick 30 mg/dl (Negative); Urine Bilirubin Dipstick Negative (Negative); Urine Clarity Sl. Cloudy (Clear); Urine Urobilinogen Normal (Normal)
[2020-10-13 22:51] LABS: BNP,B-Type NATRIURETIC PEPTIDE 79.1 pg/mL (0-100)
[2020-10-13 22:55] LABS: Bacteria RARE /hpf (None Seen); Red Blood Cells-Urine 10-25 SEEN /hpf (0-5); Squamous Epithelial Cells - UA 0-5 SEEN /hpf (5-10); White Blood Cells 25-50 SEEN /hpf (0-5)
[2020-10-13 22:56] LABS: Amorphous Sediment 1+ URATE
[2020-10-13 23:49] VITALS: BP 159/73; PULSE 96; RESP 18; TEMP 36.6; O2SAT 96
--- NOTE | 2020-10-13 23:53 | ED.VISSUMM ---
- ER Visit Summary Date of Service: 10/13/20 Chief Complaint: Lower extremity edema and hematuria History of Present Illness: The patient is a 79 F who presents with lower extremity swelling for the past 4 to 5 days. Patient also complains of hematuria and dysuria. Patient states her lower extremities have been getting more swollen over the last 4 to 5 days. Daughter also noted some redness to her lower legs. Patient states nothing makes them worse and nothing makes them better. Patient denies any fevers or chills. Patient has a history of vulvar vaginal cancer and is scheduled for radiation therapy tomorrow. Patient also has a history of bladder cancer. Daughter is concerned that the cancer has spread into her bladder which is causing the hematuria. Physical Examination: Vital signs are stable. Patient is afebrile. Patient is in no acute distress. Oral mucosa is pink and moist. Neck is supple. Trachea is midline. There is no JVD. Heart was regular rate and rhythm. Lungs are clear and equal bilaterally. Abdomen is soft. Bowel sounds are normal. There is mild suprapubic tenderness. There is no rebound or guarding noted. Cranial nerves II through XII are intact. There are no focal motor or sensory deficits noted. Extremities are intact. There is 2+ edema of the lower extremities bilaterally. There is some mild erythema. There is no discharge or drainage. Test Results: EKG was obtained. On my interpretation, it showed a normal sinus rhythm with a rate of 98. HI interval, QRS interval, and QTc intervals were all normal. [place] was normal. There are nonspecific ST-T wave changes. This was essentially unchanged compared to previous EKG dated 09/04/2016. CBC shows a mild leukocytosis at 11.2. Comprehensive metabolic profile showed a sodium of 2.9, BUN was 46 and creatinine was 3.16. Urinalysis showed leukocyte esterase of 500 and occult blood of 150. There are 25-50 white blood cells and 10-25 red blood cells. Troponin was normal. BNP was normal. Portable 1 view chest x-ray was obtained. On my interpretation, lung thrasher are clear. There is normal cardiac silhouette. Bony thorax is normal. There is no acute process noted. Radiologist also interpreted the x-ray and agrees. Emergency Department Course and Treatment: Patient was given a dose of Rocephin here. Patient was also given a dose of oral potassium. Patient was advised of her findings. Case was discussed with the hospitalist. He will admit the patient to his service. Patient and family understood and were agreeable with the plan. All questions were answered. Disposition: Admit to hospital Impression: 1. Acute kidney injury 2. Urinary tract infection This note was generated with [employer] dictation software. It may contain incorrect words, spelling, and punctuation that were not noted in review of the chart prior to signing ED Disposition - Plan for ED Patient: Disposition: Acute Care Hospital [facility] Diagnosis: Acute kidney injury, Urinary tract infection Referrals: Sandra Carter MD [Primary Care Provider] -
[2020-10-13] MEDS: Ceftriaxone 1 GM/50 ML BAG IV (23:56)
[2020-10-13] MEDS: Potassium Chloride Oral Tablet 20 MEQ 40 MEQ PO (23:57)
[2020-10-14] VITALS (7 sets, daily range): BP systolic 122–175; BP diastolic 54–78; PULSE 92–104; RESP 16–18; TEMP 36.5–37.1; O2SAT 93–97; BMI 26.9
--- NOTE | 2020-10-14 00:23 | HP.PCM_ITS ---
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 She denies any pain in her legs. Further, she has ongoing dysuria and burning sensation urination. This has been going on for about 6 months. Occasionally she see gross blood in her urine. She denies fever but reports chills. Past Medical History Past Medical History (Chronic Problems): Chronic Problems Transitional cell carcinoma of kidney (Chronic) Personal history of bladder cancer (Chronic) HLD (hyperlipidemia) (Chronic) Type II diabetes mellitus (Chronic) Allergies No Known Allergies Allergy (Verified 10/13/20 20:35) Home Medications: Ambulatory Orders Medication Instructions Recorded Amitriptyline HCl [Elavil] 100 mg PO QHS 09/04/16 Pioglitazone [Actos] 15 mg PO DAILY 08/25/20 Diazepam [Valium] 5 mg PO PRN PRN 10/13/20 Lactulose 10 gm PO DAILY PRN 10/13/20 Ondansetron [Ondansetron Odt] 4 mg PO Q6H PRN 10/13/20 Oxycodone HCl 5 - 10 mg PO Q6H PRN 10/13/20 fentaNYL patch [Duragesic patch] 50 mcg TRANSDERM. Q72H 10/13/20 Surgical History: cholecystectomy, hysterectomy Smoking Status: Never smoker - *Family History Maternal History Items: - - Her mother in a motor vehicle accidents when her mother was in her 40s Paternal History Items: Stroke Review of Systems Constitutional: Reports: Chills. Denies: Fever, Weight Change HEENT: Denies: Head Aches, Sinus Congestion, Sinus Drainage Cardiovascular: Reports: Edema. Denies: Chest Pain, Palpitations Respiratory: Denies: Cough, Shortness of breath at rest, Sputum production Gastrointestinal: Denies: Abdominal Pain, Nausea, Vomiting Genitourinary: Reports: Dysuria, Hematuria Musculoskeletal: Denies: Joint Pain, Joint Tenderness Skin: Denies: Rash, Wounds Neurological: Denies: Numbness, Tingling, Focal weakness Psychiatric: Denies: Anxiety, Depression, Homicidal Ideations, Suicidal Ideations Hematologic/ Lymphatic: Denies: Easy Bruising, Easy Bleeding VTE Information - Inpt Only VTE Present on Admission: No VTE Mechan Device Prophylaxis: SCD's VTE Pharm Prophylaxis ordered?: No Patient Problems: Active and Suspected Problems Vulvar pain (Acute) Acute kidney injury (Acute) Cellulitis (Acute) Cystitis (Acute) - Physical Exam Vitals/I&O's: Vital Signs Temp Pulse Resp BP Pulse Ox 97.8 F 96 18 159/73 H 96 10/14/20 00:00 10/14/20 00:00 10/14/20 00:00 10/14/20 00:00 10/14/20 00:00 Oxygen Delivery Method Room Air Weight: 69.853 kg Body Mass Index (BMI) 26.4 General: Alert, Oriented x3, Cooperative HEENT: Atraumatic, PERRLA, EOMI, Normocephalic Neck: Supple, No JVD, Negative Carotid Bruits Lungs: Clear to auscultation, Normal air movement Cardiovascular: Regular rate, No murmurs Abdomen: Bowel Sounds Present, Soft, Non Tender Extremities: Capillary Refill Less than 3 Seconds, Edema - Bilateral legs Skin: - - Erythema of pelvic area. Swelling of vulva with tenderness. Musculoskeletal: No Tenderness to Palpation of Joints or Extremities Neurological: Cranial nerves II-XII grossly intact Psych/Mental Status: Normal Affect, Appropriate Laboratory Results 10/13/20 21:25: WBC 11.2 H, RBC 3.95 L, Hgb 11.4 L, Hct 35.3 L, MCV 89.4, MCH 28.9, MCHC 32.3, RDW Std Deviation 45.3 H, RDW Coeff of Carlos 14.0, Plt Count 301, MPV 8.7, Immature Gran % (Auto) 0.300, Neut % (Auto) 72.1 H, Lymph % (Auto) 13.9 L, [place] % (Auto) 9.8, Eos % (Auto) 3.6, Baso % (Auto) 0.3, Absolute Neuts (auto) 8.1 H, Absolute Lymphs (auto) 1.55, Nucleated RBC % 0 10/13/20 21:25: PT 14.4, INR 1.2, APTT 30.5 10/13/20 21:25: Sodium 134 L, Potassium 2.9 L, Chloride 99, Carbon Dioxide 29.0, Anion Gap 6, BUN 46 H, Creatinine 3.16 H, Estim Creat Clear Calc 12.06, Est GFR (MDRD) Af Amer 18 L, Est GFR (MDRD) Non-Af 15 L, BUN/Creatinine Ratio 14.6, Glucose 143 H, Calcium 9.1, Total Bilirubin 0.30, AST 12 L, ALT 18, Alkaline Phosphatase 60, Troponin I < 0.015, Total Protein 7.0, Albumin 3.0 L, Globulin 4.0, Albumin/Globulin Ratio 0.8 L 10/13/20 21:25: B-Natriuretic Peptide 79.1 10/13/20 22:39: Urine Color Yellow, Urine Clarity Sl. Cloudy, Urine pH 6.0, Ur Specific [place] 1.010, Urine Protein 30 H, Urine Glucose (UA) Normal, Urine Ketones Negative, Urine Occult Blood 150 H, Urine Nitrite Negative, Urine Bilirubin Negative, Urine Urobilinogen Normal, Ur Leukocyte Esterase 500 H, Urine RBC 10-25 SEEN, Urine WBC 25-50 SEEN, Ur Squamous Epith Cells 0-5 SEEN, Amorphous Sediment 1+ URATE, Urine Bacteria RARE, Urine Mucus 0 SEEN Assessment/Plan All Active Problems Vulvar pain (Acute) Acute kidney injury (Acute) Cellulitis (Acute) Cystitis (Acute) The patient is a 79 year old F with a significant history of vulvovaginal cancer who presents emergency department with 5-day history of progressively worsening bilateral leg edema; dysuria and found to have elevated creatinine above her baseline. Bilateral leg edema Etiology unclear at this time. However with history of cancer patient is a high risk of DVT. However because of gross hematuria we will not start patient on anticoagulation at this time. We will get Doppler ultrasound of bilateral lower extremities. Acute cystitis Labs showed leukocytosis Review of emergency labs showed abnormal urinalysis. She reports occasional gross hematuria. However it could be from her vulvovaginal cancer. Ceftriaxone started at the emergency department and continued We will get urine culture. Trend CBC and BMP Acute cellulitis With erythema of the pelvic area Started on ceftriaxone at the the emergency department and continued. Hypokalemia Potassium on presentation was 2.9 Received oral potassium supplementation at the ED Trend BMP NATY on chronic kidney disease stage III CKD Likely from Diabetic nephropathy Baseline creatinine of around 1.5 Creatinine on admission was 3.16 Gentle IV hydration started at emergency department continue Trend BMP. Avoid nephrotoxic's Vulvovaginal cancer/Vulva pain Patient is scheduled to have palliative radiation starting, 10/14/2020. Family to cancel appointment at this time. Fentanyl patch continued Diabetes mellitus Patient with mild hyperglycemia on presentation Pioglitazone continued. Accu-Chek QA CHS with correction scale insulin ordered. Anxiety disorder Diazepam as needed continued DVT Prophylaxis SCD ordered Inpatient E&M: 86662 Init Hosp L3
--- NOTE | 2020-10-14 00:44 | VDLE_ITS ---
Reason For Study: Swelling RIGHT LEFT GSV is normal. GSV is normal. CFV is compressible, spontaneous, phasic, CFV is compressible, spontaneous, phasic, competent and demonstrates normal competent, and demonstrates normal augmentation. augmentation. FV is compressible, spontaneous, phasic, FV is compressible, spontaneous, phasic, competent and demonstrates normal competent and demonstrates normal augmentation. augmentation. POP V is compressible, spontaneous, phasic, POP V is compressible, spontaneous, phasic, competent and demonstrates normal competent and demonstrates normal augmentation. augmentation. T/P Trunk is compressible. T/P Trunk is compressible. PTV is compressible. PTV is compressible. RT PerV is compressible. LT PerV is compressible. Procedure This is a venous duplex using B-mode, color flow and spectral Doppler. Exam performed portable in patient room. A preliminary report was called and/or faxed to [facility]. VL/Venous Duplex US - David Extrem Interpretation Summary No evidence for acute deep venous thrombosis bilateral lower extremities with p atent and compressible bilateral great saphenous veins. Ordering Physician: Antoine Snyder Referring Physician: Sandra Carter Performed By: Nessa Callahan RVT
[2020-10-14] MEDS: 0.9% Normal Saline 1,000 ML 75 ML IV ×2 (01:12→15:34)
[2020-10-14] MEDS: oxyCODONE 5 MG Tablet PO ×4 (01:19→21:53)
[2020-10-14] MEDS: Amitriptyline 100 MG Tablet PO ×2 (01:20→22:03)
[2020-10-14 06:41] LABS: Bedside Glucose 106 mg/dL (70-110)
[2020-10-14 06:43] LABS: Absolute Lymphocyte Count 1.59 X10^3/uL (0.83-4.51); Absolute Neutrophil Count 7.8 X10^3/uL (2.0-7.7); Basophil# 0.05 X10^3/uL; Basophil% 0.5 % (0-1); Eosinophil# 0.46 X10^3/uL; Eosinophils% 4.2 % (0-5); Hematocrit 32.4 % (37-47); Hemoglobin 10.4 g/dL (12.0-15.0); Lymphocyte # 1.59 X10^3/ul (4.0); Lymphocyte % 14.7 % (19-41); Mean Corp Hgb Conc 32.1 g/dL (32-36); Mean Corpuscular Hgb 28.7 pg (27.0-32.0); Mean Corpuscular Volume 89.5 fL (81-99); Mean Platelet Vol. 9.2 fl (6.2-12.0); Monocyte# 0.91 X10^3/uL; Monocyte% 8.4 % (0-10); NRBC Flagged by Analyzer 0 % (0-5); Neutrophil # 7.79 X10^3/uL (2.7-7.7); Neutrophil % 71.9 % (47-70); Platelet Count 303 K/mm3 (150-450); RBC Distribution Width CV 13.7 % (11.6-14.6); RBC Distribution Width SD 44.8 fl (35.1-43.9); Red Blood Count 3.62 M/mm3 (4.2-5.4); White Blood Count 10.8 K/mm3 (4.4-11.0)
[2020-10-14 07:08] LABS: Anion Gap 7 (5-15); BUN 38 mg/dL (7-18); BUN/Creat Ratio 17.3 RATIO (10-20); Calcium,Total 8.5 mg/dL (8.5-10.1); Chloride 104 mmol/L (98-107); EST Glomerular Filtration Rate 23 mL/min (>60); Est Glom Filt Rate - Afr Amer 28 mL/min (>60); Estimated Creatinine Clearance 17.32 ml/min; Glucose 94 mg/dL (74-106); Potassium 3.1 mmol/L (3.5-5.1); Sodium Level 139 mmol/L (136-145)
[2020-10-14 07:47] LABS: Magnesium 1.5 mg/dL (1.6-2.6); Phosphorus 3.4 mg/dL (2.5-4.9)
--- NOTE | 2020-10-14 09:11 | CASEMGMT ---
Social Work Note Per admissions clinician questions, pt has completed HCPOA and LW, haven't provided copies to [facility] and pt unable to bring in copies. Nessa Alston CHILD CARE ATTENDANT, PRINTING PRESS MACHINE OPERATOR
--- NOTE | 2020-10-14 09:40 | NURSING ---
PT VOIDED IN TOILET BUT MISSED THE CONTAINER SO WAS NOT MEASURED
[2020-10-14] MEDS: diazePAM 5 MG Tablet PO (09:50)
[2020-10-14] MEDS: Potassium Chloride Oral Tablet 20 MEQ 40 MEQ PO (09:51)
--- NOTE | 2020-10-14 09:57 | NURSING ---
NITIN CANALES, DAUGHTER IS HERE VISITNG FROM [employer]. [phone]
--- NOTE | 2020-10-14 10:15 | CASEMGMT ---
Addendum entered by Cony Marshall 10/15/20 10:26: Late entry for 10/14/20 1345- In to pt room, pt and dtr choose [facility] as first choice for HHC. TC to Janee intake at [facility] and patient accepted. Original Note: VINCE REYEZ Assessment: Face to Face with pt for initial transition planning/care coordination assessment. RN CM introduced self and role at [facility], pt voices understanding and consents to assessment. Pt is O x4, drowsy and answers questions appropriately at this time, but requests dtr at bedside to answer for her. Care providers, pharmacy, and demographics verified/updated. Admitting Dx: Acute hemorrhagic cystitis PCP: Dr. Jake solorzano on 11/06. Specialists: , abilio onc; Dr.Mascionc Preferred Pharmacy: [facility] Insurance: [employer], [employer] Prescription Benefit: yes LW/HPOA: Pt dtr has LW and DPOA papers as well as DNR. This CM gave to school attendance secretary to copy and file in pt chart and documents returned. DPOA is dtr Mya Dacosta LNOK: son, Bird; dtr Mya Olesya Living Arrangements: Pt lives alone in a single story house with 2 steps to enter with rail. Pt able to dress self I, bathing is getting harder. Pt denies concerns at home. There is a family member that comes everday to check on her. Transportation: Pt children transport her to app. No concerns with transportation. DME/HHC/SNF: Pt has a wheeled walker, hospital bed (not using), BSC and raised toilet seat. Pt has not had any HHC or SNF stays. Pt dtr states that pt was supposed to have Palliative Care from [facility] come today through [facility], but they called to cancel. Made aware that there is Palliative Care in [facility] as well. She states that prefers someone through [facility] so he can see all of the medical records on their EMR. They prefer to stay with the Palliative Care already in process, though they will not be seen for 3 wks. Pt/dtr agreeable to having HHC SN come to home to educate on medications, disease processes as well as ENGLISH PROFESSOR. Patient/dtr was provided a list of HHC providers including quality and resource use data and consistent with the patient?s preferred geographic region, medical needs, and insurance network. Will check back this afternoon for preference as dtr wants to speak with her sister Mya. Pt/dtr states no further concerns/needs. CM to follow. Advised pt to ask CM if any further question/concerns/needs arise, voices understanding. Pt Goal: Home with HHC Plan: Home with HHC, family support follow up plans in place.
--- NOTE | 2020-10-14 10:56 | PCM.HOSP.N ---
Hospitalist Note Patient was seen and examined. She was admitted scholarship counselor today. She was sleepy but woke up when I saw her. She is not clear about the chronology of her symptoms but he states she has worsening bilateral leg edema, dysuria/burning micturition and sometimes blood in the urine, pinkish in color. She also has sometimes constipation. Overall it seems that this has been going for at least last 3 to 4 months although may be more but she is not clear about the onset of the symptoms. Complaint of groin pain mainly on the right side General: Drowsy/lethargic from incomplete sleep. Oriented x3, Cooperative HEENT: Atraumatic, PERRLA, EOMI, Normocephalic Oral: No Gingival or Mucosal Lesions/ Ulcerations Neck: Supple, No JVD, Negative Carotid Bruits Lungs: Air entry diminished in bilateral lung bases. No crepitation/rhonchi Cardiovascular: Regular rate, Regular Rhythm, Normal S1, Normal S2, No murmurs Abdomen: Bowel Sounds Present, Soft, Non Tender, Non-Distended : Mild tenderness on the right inguinal region. No renal angle tenderness. Mild suprapubic tenderness. Extremities: Bilateral lower leg, pitting edema, Capillary Refill Less than 3 Seconds Skin: No rashes, No breakdown Musculoskeletal: No Tenderness to Palpation of Joints or Extremities Neurological: Cranial nerves II-XII grossly intact, Deep Tendon Reflexes 2+/4 and Symmetrical, Neuro grossly intact Psych/Mental Status: Normal Affect, Appropriate. The patient is a 79 year old F with a significant history of vulvovaginal cancer who was admitted with progressive worsening of bilateral leg edema; dysuria and found to have elevated creatinine above her baseline. Bilateral leg edema: Probably from inguinal lymphadenopathy/vulvar cancer/lymphatic obstruction: Doppler ultrasound of bilateral lower extremity has been ordered. Actos discontinued Complicated acute cystitis with vulvar cancer: Patient has leukocytosis, pyuria 25-50 cells in UA, mild hematuria, LE positive. CT abdomen shows 2 right vulvar thick-walled cystic masses 2.9 cm anterior and 3.4 cm posterior with adjacent skin thickening and subcutaneous edema. No bladder stone or wall thickening or hydronephrosis or renal stones reported. Suspicion of possible compression/distortion of urethra bladder from vulvar mass. Bladder scan and PVR Hypokalemia: Improvement from 2.9-3.1. Magnesium is 1.5. Phosphorus 3.4. NATY on chronic kidney disease stage III from diabetic nephropathy: Baseline creatinine around 1.5. Mild improvement in creatinine after hydration. Continue IV fluid. Vulvovaginal cancer/Vulva pain: As mentioned above. Patient is scheduled to have palliative radiation starting 10/14/2020. Fentanyl patch continued Diabetes mellitus type II: Accu-Cheks before meals and at bedtime continue with sliding scale insulin. Anxiety disorder Diazepam as needed continued DVT Prophylaxis SCD ordered
[2020-10-14 11:30] LABS: Bedside Glucose 103 mg/dL (70-110)
[2020-10-14 16:40] LABS: Bedside Glucose 156 mg/dL (70-110)
--- NOTE | 2020-10-14 18:12 | PCM.CONS.B ---
Problem List (1) Vulvar pain Status: Acute (2) Cellulitis Status: Acute Qualifiers: Site of cellulitis: extremity Site of cellulitis of extremity: lower extremity Laterality: unspecified laterality Qualified Code(s): L03.119 - Cellulitis of unspecified part of limb (3) Vulvar malignant neoplasm Status: Chronic - Consult Date of Consult: 10/14/[address] Arredondo regarding a patient with advanced vulvar cancer and uncontrollable pain. Final recommendations will be communicated to the nursing staff and by electronic medical records - Reason for Consult Acute swelling of both legs secondary to cellulitis Intractable vulvar pain from advanced valvular cancer Chief Complaint: bilateral leg swelling The patient is a 79 year old F with a significant history of vulvovaginal cancer who presents emergency department with 5-day history of progressively worsening bilateral leg edema redness. She denies any pain in her legs. She has ongoing dysuria and burning sensation urination. She has no fever or chills. Past medical history significant for hypertension, paroxysmal SVT, hypercholesterolemia, GERD, type 2 diabetes mellitus, and stage III chronic kidney disease. She presented with valvular pain 2 months ago but has not had a pelvic exam for years. She had noted thick white plaques along with ulceration in the right labia minora. Examined under anesthesia on 09/05/2020 by [employer] SUPERVISOR and biopsy revealed squamous cell carcinoma, p16 positive. PET scan on 09/18/201907/21 activity in the lower vagina perineum and right vulvar region. Bilateral FDG avid inguinal lymphadenopathy highly suspicious for metastatic disease. She is currently on Duragesic and oxycodone for pain. She had try lidocaine topical without any improvement. Complaint of constipation, no nausea. Her over pain is constant and sharp. She was scheduled for palliative radiation therapy starting this week with Dr. Henley. F palliative care consulted but not able to see patient until 3 weeks from now. Vascular study of the lower extremity ordered today. Past Medical History Past Medical History (Chronic Problems): Chronic Problems Transitional cell carcinoma of kidney (Chronic) Personal history of bladder cancer (Chronic) HLD (hyperlipidemia) (Chronic) Type II diabetes mellitus (Chronic) Allergies No Known Allergies Allergy (Verified 10/13/20 20:35) Home Medications: Ambulatory Orders Medication Instructions Recorded Amitriptyline HCl [Elavil] 100 mg PO QHS 09/04/16 Pioglitazone [Actos] 15 mg PO DAILY 08/25/20 Diazepam [Valium] 5 mg PO PRN PRN 10/13/20 Lactulose 10 gm PO DAILY PRN 10/13/20 Ondansetron [Ondansetron Odt] 4 mg PO Q6H PRN 10/13/20 Oxycodone HCl 5 - 10 mg PO Q6H PRN 10/13/20 fentaNYL patch [Duragesic patch] 50 mcg TRANSDERM. Q72H 10/13/20 Surgical History: cholecystectomy, hysterectomy Smoking Status: Never smoker - *Family History Maternal History Items: - - Her mother in a motor vehicle accidents when her mother was in her 40s Paternal History Items: Stroke Review of Systems Constitutional: Reports: Chills. Denies: Fever, Weight Change HEENT: Denies: Head Aches, Sinus Congestion, Sinus Drainage Cardiovascular: Reports: Edema. Denies: Chest Pain, Palpitations Respiratory: Denies: Cough, Shortness of breath at rest, Sputum production Gastrointestinal: Denies: Abdominal Pain, Nausea, Vomiting Genitourinary: Reports: Dysuria, Hematuria Musculoskeletal: Denies: Joint Pain, Joint Tenderness Skin: Denies: Rash, Wounds Neurological: Denies: Numbness, Tingling, Focal weakness Psychiatric: Denies: Anxiety, Depression, Homicidal Ideations, Suicidal Ideations Hematologic/ Lymphatic: Denies: Easy Bruising, Easy Bleeding Vulvar pain (chronic) Acute kidney injury (Acute) Cellulitis (Acute) Cystitis (Acute) - Physical Exam Vitals/I&O's: Vital Signs Temp Pulse Resp BP Pulse Ox 97.8 F 96 18 159/73 H 96 10/14/20 00:00 10/14/20 00:00 10/14/20 00:00 10/14/20 00:00 10/14/20 00:00 Oxygen Delivery Method Room Air Weight: 69.853 kg Body Mass Index (BMI) 26.4 General: Alert, Oriented x3, Cooperative HEENT: Atraumatic, PERRLA, EOMI, Normocephalic Neck: Supple, No JVD, Negative Carotid Bruits Lungs: Clear to auscultation, Normal air movement Cardiovascular: Regular rate, No murmurs Abdomen: Bowel Sounds Present, Soft, Non Tender Extremities: Capillary Refill Less than 3 Seconds, Edema - Bilateral legs w mild erythema Skin: - - Erythema of pelvic area. Swelling of vulva with tenderness. + Inguinal adenopathy Musculoskeletal: No Tenderness to Palpation of Joints or Extremities Neurological: Cranial nerves II-XII grossly intact Psych/Mental Status: Normal Affect, Appropriate. Laboratory Results 10/13/20 21:25: WBC 11.2 H, RBC 3.95 L, Hgb 11.4 L, Hct 35.3 L, MCV 89.4, MCH 28.9, MCHC 32.3, RDW Std Deviation 45.3 H, RDW Coeff of Carlos 14.0, Plt Count 301, MPV 8.7, Immature Gran % (Auto) 0.300, Neut % (Auto) 72.1 H, Lymph % (Auto) 13.9 L, [place] % (Auto) 9.8, Eos % (Auto) 3.6, Baso % (Auto) 0.3, Absolute Neuts (auto) 8.1 H, Absolute Lymphs (auto) 1.55, Nucleated RBC % 0 10/13/20 21:25: PT 14.4, INR 1.2, APTT 30.5 10/13/20 21:25: Sodium 134 L, Potassium 2.9 L, Chloride 99, Carbon Dioxide 29.0, Anion Gap 6, BUN 46 H, Creatinine 3.16 H, Estim Creat Clear Calc 12.06, Est GFR (MDRD) Af Amer 18 L, Est GFR (MDRD) Non-Af 15 L, BUN/Creatinine Ratio 14.6, Glucose 143 H, Calcium 9.1, Total Bilirubin 0.30, AST 12 L, ALT 18, Alkaline Phosphatase 60, Troponin I < 0.015, Total Protein 7.0, Albumin 3.0 L, Globulin 4.0, Albumin/Globulin Ratio 0.8 L 10/13/20 21:25: B-Natriuretic Peptide 79.1 10/13/20 22:39: Urine Color Yellow, Urine Clarity Sl. Cloudy, Urine pH 6.0, Ur Specific [place] 1.010, Urine Protein 30 H, Urine Glucose (UA) Normal, Urine Ketones Negative, Urine Occult Blood 150 H, Urine Nitrite Negative, Urine Bilirubin Negative, Urine Urobilinogen Normal, Ur Leukocyte Esterase 500 H, Urine RBC 10-25 SEEN, Urine WBC 25-50 SEEN, Ur Squamous Epith Cells 0-5 SEEN, Amorphous Sediment 1+ URATE, Urine Bacteria RARE, Urine Mucus 0 SEEN 10/14/20 05:45: WBC 10.8, RBC 3.62 L, Hgb 10.4 L, Hct 32.4 L, MCV 89.5, MCH 28.7, MCHC 32.1, RDW Std Deviation 44.8 H, RDW Coeff of Carlos 13.7, Plt Count 303, MPV 9.2, Immature Gran % (Auto) 0.300, Neut % (Auto) 71.9 H, Lymph % (Auto) 14.7 L, [place] % (Auto) 8.4, Eos % (Auto) 4.2, Baso % (Auto) 0.5, Absolute Neuts (auto) 7.8 H, Absolute Lymphs (auto) 1.59, Nucleated RBC % 0 10/14/20 05:45: Sodium 139, Potassium 3.1 L, Chloride 104, Carbon Dioxide 28.0, Anion Gap 7, BUN 38 H, Creatinine 2.20 H, Estim Creat Clear Calc 17.32, Est GFR (MDRD) Af Amer 28 L, Est GFR (MDRD) Non-Af 23 L, BUN/Creatinine Ratio 17.3, Glucose 94, Calcium 8.5 10/14/20 05:45: Phosphorus 3.4, Magnesium 1.5 L 10/14/20 06:34: POC Glucose 106 10/14/20 11:21: POC Glucose 103 10/14/20 16:24: POC Glucose 156 H Assessment/Plan All Active Problems Vulvar pain (chronic) Acute kidney injury (Acute) Cellulitis (Acute) Cystitis (Acute) The patient is a 79 year old F with clinical stage IIIb T2N2b,M0 vulvovaginal squamous cell carcinoma, p16+ who presents emergency department with 5-days history of progressively worsening bilateral leg edema secondary to cellulitis and possible lymphedema from metastatic disease. -Vascular study ordered to rule out DVT. Plan: -Continue empiric antibiotic therapy for cellulitis -Awaiting palliative radiation therapy for her vulvar cancer after d/c as outpatient. -Lymphedema management and elevate extremities. 2) intractable pain secondary to advanced vulvar cancer -On Duragesic and oxycodone prn for pain Plan: -Consider adding Neurontin, titrate pain medication (increase Duragesic) and continue stool softener laxative for constipation -Tylenol 500mg every 6-hours -Consult palliative care for pain and symptom management. 3) acute/chronic renal failure -Renal function improving with fluid replacement. Plan: -Continue IV fluid and monitor renal functions -Waiting urine culture result for cystitis -Continue Rocephin cc: Dr.Paul Evans, Dr. Sandra Carter, Dr. Bishop Arredondo
[2020-10-14] MEDS: diazePAM 2 MG Tablet PO (18:38)
[2020-10-14] MEDS: Insulin Lispro 100 UNIT/ML INSULN.PEN SC (18:39)
[2020-10-14] MEDS: Ceftriaxone 1 GM/50 ML BAG IV (21:53)
[2020-10-14] MEDS: Acetaminophen 325 MG Tablet 650 MG PO (21:53)
[2020-10-14] MEDS: MELATONIN 3 MG TABLET PO (21:53)
[2020-10-15 00:01] LABS: Bedside Glucose 101 mg/dL (70-110)
[2020-10-15] MEDS: Acetaminophen 325 MG Tablet 650 MG PO (05:09)
[2020-10-15] MEDS: oxyCODONE 5 MG Tablet PO ×3 (05:09→18:01)
[2020-10-15] MEDS: 0.9% Normal Saline 1,000 ML 75 ML IV (05:10)
[2020-10-15 05:12] VITALS: BP 126/57; PULSE 83; RESP 16; TEMP 37.4; O2SAT 94
[2020-10-15 05:43] LABS: Anion Gap 5 (5-15); BUN 27 mg/dL (7-18); BUN/Creat Ratio 18.2 RATIO (10-20); Calcium,Total 8.5 mg/dL (8.5-10.1); Chloride 109 mmol/L (98-107); Creatinine, Serum 1.48 mg/dL (0.55-1.02); EST Glomerular Filtration Rate 36 mL/min (>60); Est Glom Filt Rate - Afr Amer 43 mL/min (>60); Estimated Creatinine Clearance 25.74 ml/min; Glucose 92 mg/dL (74-106); Magnesium 1.8 mg/dL (1.6-2.6); Potassium 3.7 mmol/L (3.5-5.1); Sodium Level 140 mmol/L (136-145)
[2020-10-15 06:26] LABS: Bedside Glucose 107 mg/dL (70-110)
--- NOTE | 2020-10-15 07:18 | PN_ITS ---
Patient Problems: Active and Suspected Problems Vulvar pain (Acute) Acute kidney injury (Acute) Cellulitis (Acute) Cystitis (Acute) Reason for Visit: Follow-up for bilateral lower extremity edema secondary to vulvar cancer with bilateral inguinal lymphadenopathy, acute kidney injury on CKD and UTI Objective: Seen and examined in the presence of patient's nurse, Jessica CLARKE. Patient complain of bilateral inguinal pain/pelvic pain more so her understanding. General: Awake, AAOx3, cooperative HEENT: Atraumatic, PERRLA, EOMI, Normocephalic Oral: No Gingival or Mucosal Lesions/ Ulcerations Neck: Supple, No JVD, Negative Carotid Bruits Lungs: Air entry diminished in bilateral lung bases. No crepitation/rhonchi Cardiovascular: Regular rate, Regular Rhythm, Normal S1, Normal S2, No murmurs Abdomen: Bowel Sounds Present, Soft, Non Tender, Non-Distended : Large hard, about 5 to 6 cm on the mons pubis mass. Bilateral large, right more than left superficial inguinal adenopathy which are nontender. No renal angle tenderness. Extremities: Bilateral lower leg, pitting edema, Capillary Refill Less than 3 Seconds Skin: No rashes, No breakdown Musculoskeletal: No Tenderness to Palpation of Joints or Extremities Neurological: Cranial nerves II-XII grossly intact, Deep Tendon Reflexes 2+/4 an d Symmetrical, Neuro grossly intact Psych/Mental Status: Normal Affect, Appropriate. Vitals/I&O's: Vital Signs Temp Pulse Resp BP Pulse Ox 99.3 F H 83 16 126/57 H 94 10/15/20 05:12 10/15/20 05:12 10/15/20 05:12 10/15/20 05:12 10/15/20 05:12 Oxygen Delivery Method Room Air Weight: 156 lb 11.979 oz Body Mass Index (BMI) 26.9 Intake and Output for Last 24 Hours 10/13/20 10/14/20 10/15/20 23:59 23:59 23:59 Intake Total 3217.75 / 3217.75 608.75 / 608.75 Output Total 900 / 900 Balance 2317.75 / 2317.75 608.75 / 608.75 Laboratory Results 10/14/20 05:45: Phosphorus 3.4, Magnesium 1.5 L 10/14/20 11:21: POC Glucose 103 10/14/20 16:24: POC Glucose 156 H 10/14/20 21:57: POC Glucose 101 10/15/20 05:04: Sodium 140, Potassium 3.7, Chloride 109 H, Carbon Dioxide 26.0, Anion Gap 5, BUN 27 H, Creatinine 1.48 H, Estim Creat Clear Calc 25.74, Est GFR (MDRD) Af Amer 43 L, Est GFR (MDRD) Non-Af 36 L, BUN/Creatinine Ratio 18.2, Glucose 92, Calcium 8.5, Magnesium 1.8 10/15/20 06:21: POC Glucose 107 Current Medications Acetaminophen (Acetaminophen 325 Mg Tablet) 650 mg PO Q6H PRN PRN PRN Reason: Pain Score 1-10/Temp > 100.7 F Last Admin: 10/15/20 05:09 Dose: 650 mg Documented by: Albuterol Sulfate (Albuterol 2.5 Mg/3 Ml Vial.Neb.) 2.5 mg INHALATION Q2H PRN PRN PRN Reason: Shortness of Breath/Wheezing Amitriptyline HCl (Amitriptyline 100 Mg Tablet) 100 mg PO QHS [facility] Last Admin: 10/14/20 22:03 Dose: 100 mg Documented by: Dextrose (Dextrose 50%-Water 25 Gm/50 Ml Disp.Syrin) 0 gm IV X1 PRN; Protocol PRN Reason: Hypoglycemia Diazepam (Diazepam 2 Mg Tablet) 2 mg PO DAILY PRN PRN PRN Reason: ANXIETY Last Admin: 10/14/20 18:38 Dose: 2 mg Documented by: Fentanyl (Fentanyl 50 Mcg Patch) 50 mcg TD Q72H [facility] Last Admin: 10/14/20 15:56 Dose: 50 mcg Documented by: Glucagon (Glucagon 1 Mg/Ml Syringe) 1 mg IM .X1 PRN PRN Reason: Hypoglycemia Hydromorphone HCl (Hydromorphone 0.5 Mg/0.5 Ml Syringe) 0.5 mg IV Q4H PRN PRN PRN Reason: Pain Score 6-10 Sodium Chloride () 1,000 mls @ 75 mls/hr IV .[id number] [facility] Last Admin: 10/15/20 05:10 Dose: 75 mls/hr Documented by: Ceftriaxone Sodium (Rocephin) 1 gm in 50 mls @ 100 mls/hr IV Q24@2200 [facility] Last Infusion: 10/14/20 22:23 Dose: Infused Documented by: Sodium Chloride () 250 mls @ 15 mls/hr IV .[id number] PRN PRN Reason: Saline Flush Sodium Chloride () 250 mls @ 15 mls/hr IV .[id number] PRN PRN Reason: Additional IVPB Infusion Insulin Human Lispro (Insulin Lispro 100 Unit/Ml Insuln.Pen) 0 unit [facility]; Protocol Last Admin: 10/15/20 06:25 Dose: Not Given Documented by: Lactulose (Lactulose 20 Gm/30 Ml Udc) 10 gm PO DAILY PRN PRN PRN Reason: Constipation Melatonin (Melatonin 3 Mg Tablet) 3 mg PO QHS PRN PRN PRN Reason: INSOMNIA Last Admin: 10/14/20 21:53 Dose: 3 mg Documented by: Ondansetron HCl (Ondansetron 4 Mg/2 Ml Vial) 4 mg IV Q8H PRN PRN PRN Reason: NAUSEA/VOMITING Oxycodone HCl (Oxycodone 5 Mg Tablet) 5 - 10 mg PO Q6H PRN PRN PRN Reason: Pain Score 4-10 Last Admin: 10/15/20 05:09 Dose: 10 mg Documented by: Senna/Docusate Sodium (Senna/Docusate Sodium 1 Tablet) 2 tablet PO BID PRN PRN PRN Reason: Constipation Sodium Chloride (0.9% Saline Lock 10 Ml Syringe) 10 - 40 ml IV UD PRN PRN Reason: SALINE FLUSH STROKE Vital Signs/Narrative: Vital Signs Temp Pulse Resp BP Pulse Ox 10/15/20 05:12 99.3 F H 83 16 126/57 H 94 Medical Necessity - Tobacco Use Smoking Status: Never smoker Assessment/Plan All Active Problems Vulvar pain (Acute) Acute kidney injury (Acute) Cellulitis (Acute) Cystitis (Acute) The patient is a 79 year old F with a significant history of vulvovaginal cancer who was admitted with progressive worsening of bilateral leg edema; dysuria and found to have elevated creatinine above her baseline. Bilateral leg edema: Probably from inguinal lymphadenopathy/vulvar cancer/lymphatic obstruction: Doppler ultrasound of bilateral lower extremity is negative for DVT. Actos discontinued. Patient supposed to have radiotherapy as an outpatient for lymphedema. Complicated acute cystitis with vulvar cancer: Patient has leukocytosis, pyuria 25-50 cells in UA, mild hematuria, LE positive. CT abdomen shows 2 right vulvar thick-walled cystic masses 2.9 cm anterior and 3.4 cm posterior with adjacent skin thickening and subcutaneous edema. No bladder stone or wall thickening or hydronephrosis or renal stones reported. Suspicion of possible compression/distortion of urethra/ bladder from vulvar mass. Bladder scan and PVR Hypokalemia: Improvement from 2.9-3.1. Magnesium is 1.5. Phosphorus 3.4. /6: Hypomagnesemia and hypokalemia corrected NATY on chronic kidney disease stage IV from diabetic nephropathy: Baseline creatinine around 1.5. Mild improvement in creatinine after hydration. Continue IV fluid. Vulvovaginal cancer/Vulva pain: Oncologist note reviewed. As per note patient had thick white plaque with ulceration in right labia minora. This was examined under anesthesia on 09/05/2020 by [employer] P[employer] and biopsy revealed squamous cell carcinoma, p16 positive. PET scan on 09/18/2019 showed activity in lower vaginal perineum and right vulvar region with bilateral FDG avid inguinal lymphadenopathy highly suspicious for metastatic disease. [facility] palliative care was consulted but not able to see until 3 weeks. Patient was scheduled to have palliative radiation starting 10/14/2020 which has to be rescheduled after discharge. Will consult palliative care. Patient on oxycodone and Dilaudid as needed. Neurontin added. Bowel regimen uptitrated. IV fluid changed to D5 half NS as her glucose is on the lower 100s. Fentanyl patch continued. Diabetes mellitus type II: Accu-Cheks before meals and at bedtime continue with sliding scale insulin. Anxiety disorder Diazepam as needed continued DVT Prophylaxis SCD ordered Clinical updates, plan of management and issues of patient hospitalization discussed with the patient. Advised patient to follow-up with Dr. Herndon regarding prognosis of vulvovaginal cancer but currently plan for radiotherapy after discharge as an outpatient. Total time of the visit including total time spent in counseling or coordination of care, (more than 50% of the total time, spent in obtaining medical information from nurses and other ancillary care providers,explaining to the patient about labs, imaging, diagnosis and management), discussion with senior research consultant, clinical update to patient's daughter, review of labs and imaging is 30 minutes. Microbiology Past 72 Hours 10/13/20 22:39 Interface Orders Urine Culture - Final Mixed Gram Positive Organisms Laboratory Results 10/14/20 16:24: POC Glucose 156 H 10/14/20 21:57: POC Glucose 101 10/15/20 05:04: Sodium 140, Potassium 3.7, Chloride 109 H, Carbon Dioxide 26.0, Anion Gap 5, BUN 27 H, Creatinine 1.48 H, Estim Creat Clear Calc 25.74, Est GFR (MDRD) Af Amer 43 L, Est GFR (MDRD) Non-Af 36 L, BUN/Creatinine Ratio 18.2, Glucose 92, Calcium 8.5, Magnesium 1.8 10/15/20 06:21: POC Glucose 107 10/15/20 11:45: POC Glucose 159 H Clinical Impression(s) from Imaging Studies Abdomen CT 10/13/20 21:09 IMPRESSION: Necrotic-appearing right-sided vulvar masses compatible with the patient''s history of squamous cell carcinoma. Adjacent edema and skin thickening could represent cellulitis or noninfectious edema. Bilateral inguinal adenopathy suspicious for metastatic disease less likely reactive. Other chronic findings as above. Chest X-Ray 10/13/20 21:34 IMPRESSION: No acute findings. Electronically Signed: Jeromy Galvez MD at 22:28 EDT Tel , Service support , Venous Doppler Study 10/14/20 00:44 Interpretation Summary No evidence for acute deep venous thrombosis bilateral lower extremities with patent and compressible bilateral great saphenous veins. Inpatient E&M: 300[address] [facility] L[facility]
[2020-10-15] MEDS: Dext 5%-0.45% NS 1,000 ML 75 ML IV ×2 (07:48→18:02)
[2020-10-15 07:51] VITALS: O2SAT 94
[2020-10-15] MEDS: diazePAM 2 MG Tablet PO (09:17)
[2020-10-15] MEDS: Senna/Docusate Sodium 1 Tablet 2 TABLET PO ×2 (09:20→21:05)
[2020-10-15] MEDS: HYDROmorphone 0.5 MG/0.5 ML SYRINGE IV (09:21)
[2020-10-15] MEDS: 0.9% Saline Lock 10 ML Syringe IV (09:21)
[2020-10-15] MEDS: Gabapentin 300 MG Capsule PO ×3 (09:21→17:07)
--- NOTE | 2020-10-15 10:26 | CASEMGMT ---
Addendum entered by Cony Marshall 10/15/20 12:51: Received tc back from Stephanie at [facility]. She confirms that pt/dtr request is standard. CM assured pt and dtr this. No further questions. Original Note: Received order for Palliative Care consult. Pt also met criteria via [facility] Palliative Screening Tool. Spoke with pt and dtr Shelley who called the dtr Mya. Pt and family are agreeable to Palliative Care in [place] if they are able to keep in touch with pt gynecological assistant in [place] and all of her narcotics are in one place. Referral faxed to Palliative. Made tc to Palliative and left the above on the vm. Requested a tc back if the above could not be accommodated.
--- NOTE | 2020-10-15 10:50 | NURSING ---
PT RESTING QUIETLY IN BED, EYES CLOSED, RESP EASY
[2020-10-15 11:12] VITALS: BP 142/77; PULSE 85; RESP 18; TEMP 36.6; O2SAT 92
[2020-10-15 11:55] LABS: Bedside Glucose 159 mg/dL (70-110)
[2020-10-15] MEDS: Insulin Lispro 100 UNIT/ML INSULN.PEN SC ×2 (12:13→21:53)
[2020-10-15] MEDS: Glucerna Shake 120 ML LIQUID PO ×2 (12:16→17:07)
--- NOTE | 2020-10-15 12:18 | NURSING ---
PT ASSISTED UP TO BR, PT HAD ALREADY BEEN INCONTINENT IN BRIEF SMALL AMOUNT URINE. PVR 279ML.
--- NOTE | 2020-10-15 16:16 | CHAPLAIN ---
Type of Pastoral Visit _x__ Initial Visit ___ Follow-up Visit ___ On-call Visit ___ General Patient Visit ___ Spiritual Assessment ___ Family Conference ___ Bereavement ___ Rapid Response ___ Code Blue ___ Other (describe below) Pastoral Care Referral From ___ Patient _x__ Family _x__ Nurse ___ Physician ___ Coat Examiner ___ Lathe Winder ___ Other (describe below) Sacrament/Intervention ___ Active listening ___ Anointing ___ Lutheran ___ Bereavement ___ Communion ___ Susana exploration ___ ___ Life review ___ Prayer ___ Reconciliation ___ Sacrament of Sick ___ Supportive presence ___ Wedding _x__ Other (describe below) Pastoral Comments patient is sleeping but referral for visit has been made for tomorrow; brief conversation with daughter Shelley in [facility]; daughter wants spiritual care for her mother as news was bad today and mother needs help/visit from the computer typesetter; plan to return tomorrow to see patient while daughter is here
[2020-10-15 17:15] LABS: Bedside Glucose 134 mg/dL (70-110)
[2020-10-15 18:00] VITALS: BP 171/96; PULSE 90; RESP 18; TEMP 36.9; O2SAT 98
[2020-10-15] MEDS: Ceftriaxone 1 GM/50 ML BAG IV (21:05)
[2020-10-15] MEDS: Amitriptyline 100 MG Tablet PO (21:05)
[2020-10-15 21:25] VITALS: BP 163/95; PULSE 100; RESP 18; TEMP 37.2; O2SAT 95
[2020-10-15 22:00] LABS: Bedside Glucose 180 mg/dL (70-110)
[2020-10-16 03:20] VITALS: BP 155/83; PULSE 98; RESP 16; TEMP 37.3; O2SAT 94
[2020-10-16] MEDS: oxyCODONE 5 MG Tablet PO ×2 (04:20→10:39)
[2020-10-16] MEDS: Acetaminophen 325 MG Tablet 650 MG PO ×2 (04:20→10:40)
[2020-10-16] MEDS: Dext 5%-0.45% NS 1,000 ML 75 ML IV (06:39)
[2020-10-16] MEDS: 0.9% Saline Lock 10 ML Syringe IV (06:40)
[2020-10-16 06:45] LABS: Bedside Glucose 128 mg/dL (70-110)
[2020-10-16 06:59] LABS: Anion Gap 5 (5-15); BUN 18 mg/dL (7-18); BUN/Creat Ratio 15.9 RATIO (10-20); Calcium,Total 8.2 mg/dL (8.5-10.1); Chloride 105 mmol/L (98-107); Creatinine, Serum 1.13 mg/dL (0.55-1.02); EST Glomerular Filtration Rate 49 mL/min (>60); Est Glom Filt Rate - Afr Amer 59 mL/min (>60); Estimated Creatinine Clearance 33.72 ml/min; Glucose 128 mg/dL (74-106); Potassium 3.7 mmol/L (3.5-5.1); Sodium Level 135 mmol/L (136-145)
[2020-10-16 07:53] VITALS: O2SAT 95
[2020-10-16] MEDS: Gabapentin 300 MG Capsule PO ×2 (08:33→10:39)
[2020-10-16] MEDS: Senna/Docusate Sodium 1 Tablet 2 TABLET PO (08:33)
[2020-10-16 08:47] VITALS: BP 141/77; PULSE 85; RESP 14; TEMP 36.9; O2SAT 94
[2020-10-16] MEDS: Glucerna Shake 120 ML LIQUID PO ×2 (09:41→10:41)
--- NOTE | 2020-10-16 11:00 | DCINST_ITS ---
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) Personal history of bladder cancer (Chronic) HLD (hyperlipidemia) (Chronic) Type II diabetes mellitus (Chronic) You will use the following diet at home:: Calorie/Carbohydrate Controlled (specify 1200, 1400, etc) - 1800 ADA diet, Cardiac Your food should be the consistency of: Regular Discharge Activity: May Not Drive Weight Bearing Status: Weight bearing as tolerated Call your doctor if you observe: Fever of 101 or Higher, Numbness or Tingling, Inability to urinate, Inability to have a bowel movement, Using more than one pad per hour, Shortness of breath, Dizziness, Fainting spells, Swelling in the ankles, Chest pain, Prolonged hiccoughing, Increased palpitations (irregular heartbeat), Calf discomfort, Uncontrolled pain Additional Instructions: Follow-up with Dr. Henley for palliative radiotherapy in 1 to 2 days. Follow-up with palliative care for pain management, ADL Allergies/Adverse Reactions: Allergies No Known Allergies Allergy (Verified 10/13/20 20:35) Medications to take at Discharge Amitriptyline HCl [Elavil] 100 mg PO QHS 09/04/16 Diazepam [Valium] 5 mg PO PRN PRN 10/13/20 Lactulose 10 gm PO DAILY PRN 10/13/20 Ondansetron [Ondansetron Odt] 4 mg PO Q6H PRN 10/13/20 Oxycodone HCl 5 - 10 mg PO Q6H PRN 10/13/20 fentaNYL patch [Duragesic patch] 50 mcg TRANSDERM. Q72H 10/13/20 Bisacodyl [Dulcolax] 5 mg PO DAILY PRN #30 tablet 10/16/20 Pioglitazone [Actos] 15 mg PO DAILY #0 10/16/20 Senna/Docusate Sodium [Senokot-S] 2 tablet PO BID #30 tablet 10/16/20 The following prescriptions were given: Bisacodyl [Dulcolax] 5 mg PO DAILY PRN #30 tablet PRN Reason: severe constipation Transmission Status: Pending to [facility] [id number] Senna/Docusate Sodium [Senokot-S] 2 tablet PO BID #30 tablet Transmission Status: Pending to [facility] [id number] Primary Care Physician: Sandra Carter MD [Primary Care Provider] - Please follow up with your Primary Care Physician in: in 1-2 weeks Test Results: Test results from this visit will be discussed in further detail at your follow- up appointment, if applicable. Please Follow Up With: Yahaira Herndon MD When: in 2-3 weeks
--- NOTE | 2020-10-16 11:03 | DS.PCM_ITS ---
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 Bilateral leg edema: Probably from inguinal lymphadenopathy/vulvar cancer/lymphatic obstruction: Doppler ultrasound of bilateral lower extremity is negative for DVT. Actos discontinued. I talked to the patient's daughter for last 2 days and emphasized on radiotherapy as an outpatient for palliative relief of pain and bilateral leg edema. Dysuria may be from vulvar cancer: Patient has leukocytosis, pyuria 25-50 cells in UA, mild hematuria, LE positive. Urine culture shows mixed gram-positive organism 25,000 50,000 suggestive of mixed gram-positive organism. UTI ruled out. CT abdomen shows 2 right vulvar thick-walled cystic masses 2.9 cm anterior and 3.4 cm posterior with adjacent skin thickening and subcutaneous edema. No bladder stone or wall thickening or hydronephrosis or renal stones reported. Suspicion of possible compression/distortion of urethra/ bladder from vulvar mass. Bladder scan and PVR and PVR was done Hypokalemia: Improvement from 2.9-3.1. Magnesium is 1.5. Phosphorus 3.4. 4/6: Hypomagnesemia and hypokalemia corrected NATY on chronic kidney disease stage IV from diabetic nephropathy: Baseline creatinine around 1.5. Mild improvement in creatinine after hydration. Continue IV fluid. Improvement in the creatinine. Last creatinine 1.13 on baseline. Vulvovaginal cancer/Vulva pain: Oncologist note reviewed. As per note patient had thick white plaque with ulceration in right labia minora. This was examined under anesthesia on 09/05/2020 by MINERAL RESOURCES INSPECTOR and biopsy revealed squamous cell carcinoma, p16 positive. PET scan on 09/18/2019 showed activity in lower vaginal perineum and right vulvar region with bilateral FDG avid inguinal lymphadenopathy highly suspicious for metastatic disease. Patient was scheduled to have palliative radiation starting 10/14/2020 which has to be rescheduled after discharge. Palliative care was consulted. Patient on oxycodone and Dilaudid as needed. Neurontin added. Bowel regimen uptitrated. IV fluid changed to D5 half NS as her glucose is on the lower 100s. Fentanyl patch continued. Patient has oxycodone and fentanyl at home. OARRS reviewed and patient had 1 month supply of oxycodone and fentanyl given by PCP recently. Diabetes mellitus type II: Accu-Cheks before meals and at bedtime continue with sliding scale insulin. Anxiety disorder Diazepam as needed continued DVT Prophylaxis SCD ordered Discharge medication reconciliation done. Discharge follow-up instructions completed. Discharge diagnosis, prognosis, process, outpatient radiotherapy discussed with the patient and her daughter and all questions were answered to patient's satisfaction. Total time spent, exact 35 minutes on discharge meds reconciliation, examination, coordination of care with nurses and ancillary staff, review of imaging and blood test and discussion with the patient on follow-up instructions Patient Problems: Active and Suspected Problems Vulvar pain (Acute) Acute kidney injury (Acute) Cellulitis (Acute) Cystitis (Acute) Objective: Her pain is much better controlled. No fever. T-max 99.2 Fahrenheit. General: Awake, AAOx3, cooperative HEENT: Atraumatic, PERRLA, EOMI, Normocephalic Oral: No Gingival or Mucosal Lesions/ Ulcerations Neck: Supple, No JVD, Negative Carotid Bruits Lungs: Air entry equal in bilateral lung bases. No crepitation/rhonchi Cardiovascular: Regular rate, Regular Rhythm, Normal S1, Normal S2, No murmurs Abdomen: Bowel Sounds Present, Soft, Non Tender, Non-Distended : Large hard, about 5 to 6 cm on the mons pubis mass. Bilateral, nontender large, right more than left superficial inguinal adenopathy. No renal angle tenderness. Extremities: Bilateral lower leg, pitting edema, Capillary Refill Less than 3 Seconds Skin: No rashes, No breakdown Musculoskeletal: No Tenderness to Palpation of Joints or Extremities Neurological: Cranial nerves II-XII grossly intact, Deep Tendon Reflexes 2+/4 and Symmetrical, Neuro grossly intact Psych/Mental Status: Normal Affect, Appropriate. - Physical Exam Vitals/I&O's: Vital Signs Temp Pulse Resp BP Pulse Ox 98.5 F 85 14 141/77 H 94 10/16/20 08:47 10/16/20 08:47 10/16/20 08:47 10/16/20 08:47 10/16/20 08:47 Oxygen Delivery Method Room Air Weight: 156 lb 11.979 oz Body Mass Index (BMI) 26.9 Intake and Output for Last 24 Hours 10/14/20 10/15/20 10/16/20 23:59 23:59 23:59 Intake Total 3217.75 / 3217.75 2615.00 / 2615.00 680 / 680 Output Total 900 / 900 900 / 900 Balance 2317.75 / 2317.75 1715.00 / 1715.00 680 / 680 Microbiology Past 72 Hours 10/13/20 22:39 Interface Orders Urine Culture - Final Mixed Gram Positive Organisms Laboratory Results 10/15/20 11:45: POC Glucose 159 H 10/15/20 16:44: POC Glucose 134 H 10/15/20 21:52: POC Glucose 180 H 10/16/20 06:10: Sodium 135 L, Potassium 3.7, Chloride 105, Carbon Dioxide 25.0, Anion Gap 5, BUN 18, Creatinine 1.13 H, Estim Creat Clear Calc 33.72, Est GFR (MDRD) Af Amer 59 L, Est GFR (MDRD) Non-Af 49 L, BUN/Creatinine Ratio 15.9, Glucose 128 H, Calcium 8.2 L 10/16/20 06:39: POC Glucose 128 H Current Medications Acetaminophen (Acetaminophen 325 Mg Tablet) 650 mg PO Q6H PRN PRN PRN Reason: Pain Score 1-10/Temp > 100.7 F Last Admin: 10/16/20 04:20 Dose: 650 mg Documented by: Albuterol Sulfate (Albuterol 2.5 Mg/3 Ml Vial.Neb.) 2.5 mg INHALATION Q2H PRN PRN PRN Reason: Shortness of Breath/Wheezing Amitriptyline HCl (Amitriptyline 100 Mg Tablet) 100 mg PO QHS [id number] Last Admin: 10/15/20 21:05 Dose: 100 mg Documented by: Bisacodyl (Bisacodyl 5 Mg Tablet) 5 mg PO DAILY PRN PRN Reason: severe constipation Bisacodyl (Bisacodyl 10 Mg Suppository) 10 mg RC DAILY PRN PRN Reason: rectal constipation Dextrose (Dextrose 50%-Water 25 Gm/50 Ml Disp.Syrin) 0 gm IV X1 PRN; Protocol PRN Reason: Hypoglycemia Diazepam (Diazepam 2 Mg Tablet) 2 mg PO DAILY PRN PRN PRN Reason: ANXIETY Last Admin: 10/15/20 09:17 Dose: 2 mg Documented by: Fentanyl (Fentanyl 50 Mcg Patch) 50 mcg TD Q72H [facility] Last Admin: 10/14/20 15:56 Dose: 50 mcg Documented by: Gabapentin (Gabapentin 300 Mg Capsule) 300 mg PO TIDCM [facility] Last Admin: 10/16/20 08:33 Dose: 300 mg Documented by: Glucagon (Glucagon 1 Mg/Ml Syringe) 1 mg IM .X1 PRN PRN Reason: Hypoglycemia Hydromorphone HCl (Hydromorphone 0.5 Mg/0.5 Ml Syringe) 0.5 mg IV Q4H PRN PRN PRN Reason: Pain Score 6-10 Last Admin: 10/15/20 09:21 Dose: 0.5 mg Documented by: Sodium Chloride () 250 mls @ 15 mls/hr IV .[id number] PRN PRN Reason: Saline Flush Sodium Chloride () 250 mls @ 15 mls/hr IV .[id number] PRN PRN Reason: Additional IVPB Infusion Dextrose/Sodium Chloride () 1,000 mls @ 75 mls/hr IV .[id number] [facility] Last Admin: 10/16/20 06:39 Dose: 75 mls/hr Documented by: Insulin Human Lispro (Insulin Lispro 100 Unit/Ml Insuln.Pen) 0 unit SC ACHS [facility]; Protocol Last Admin: 10/16/20 06:39 Dose: Not Given Documented by: Lactulose (Lactulose 20 Gm/30 Ml Udc) 10 gm PO DAILY PRN PRN PRN Reason: Constipation Melatonin (Melatonin 3 Mg Tablet) 3 mg PO QHS PRN PRN PRN Reason: INSOMNIA Last Admin: 10/14/20 21:53 Dose: 3 mg Documented by: Nutritional Formula (Lactose Free) (Glucerna Shake 120 Ml Liquid) 120 ml PO TIDCM [facility] Last Admin: 10/16/20 09:41 Dose: 120 ml Documented by: Ondansetron HCl (Ondansetron 4 Mg/2 Ml Vial) 4 mg IV Q8H PRN PRN PRN Reason: NAUSEA/VOMITING Oxycodone HCl (Oxycodone 5 Mg Tablet) 5 - 10 mg PO Q6H PRN PRN PRN Reason: Pain Score 4-10 Last Admin: 10/16/20 04:20 Dose: 10 mg Documented by: Senna/Docusate Sodium (Senna/Docusate Sodium 1 Tablet) 2 tablet PO BID [facility] Last Admin: 10/16/20 08:33 Dose: 2 tablet Documented by: Sodium Chloride (0.9% Saline Lock 10 Ml Syringe) 10 - 40 ml IV UD PRN PRN Reason: SALINE FLUSH Last Admin: 10/16/20 06:40 Dose: 20 ml Documented by: Discharge Activity: May Not Drive Weight Bearing Status: Weight bearing as tolerated Call your doctor if you observe: Fever of 101 or Higher, Numbness or Tingling, Inability to urinate, Inability to have a bowel movement, Using more than one pad per hour, Shortness of breath, Dizziness, Fainting spells, Swelling in the ankles, Chest pain, Prolonged hiccoughing, Increased palpitations (irregular heartbeat), Calf discomfort, Uncontrolled pain Home Medications: Medications to take at Discharge Amitriptyline HCl [Elavil] 100 mg PO QHS 09/04/16 Diazepam [Valium] 5 mg PO PRN PRN 10/13/20 Lactulose 10 gm PO DAILY PRN 10/13/20 Ondansetron [Ondansetron Odt] 4 mg PO Q6H PRN 10/13/20 Oxycodone HCl 5 - 10 mg PO Q6H PRN 10/13/20 fentaNYL patch [Duragesic patch] 50 mcg TRANSDERM. Q72H 10/13/20 Bisacodyl [Dulcolax] 5 mg PO DAILY PRN #30 tablet 10/16/20 Lactose-Reduced Food [Ensure Clear] 120 ml PO TIDCM #30 liquid 10/16/20 Pioglitazone [Actos] 15 mg PO DAILY #0 10/16/20 Senna/Docusate Sodium [Senokot-S] 2 tablet PO BID #30 tablet 10/16/20 Following Prescriptions Were Given to Patient: Bisacodyl [Dulcolax] 5 mg PO DAILY PRN #30 tablet PRN Reason: severe constipation Transmission Status: Received by [facility] [id number] Lactose-Reduced Food [Ensure Clear] 120 ml PO TIDCM #30 liquid Transmission Status: Received by [facility] [id number] Senna/Docusate Sodium [Senokot-S] 2 tablet PO BID #30 tablet Transmission Status: Received by [facility] [id number] Primary Care Physician: Sandra Carter MD [Primary Care Provider] - Please follow up with your Primary Care Physician in: in 1-2 weeks Please Follow Up With: Yahaira Herndon MD When: in 2-3 weeks Medical Necessity - Tobacco Use Smoking Status: Never smoker Meaningful Use Info Meaningful Use Diagnoses (Choose all that apply): None applicable Inpatient E&M: [id number] [facility]
--- NOTE | 2020-10-16 11:22 | CASEMGMT ---
In to pt room to discuss dc. Dtr Shelley in room. Pt and dtr aware that Rosina from Palliative will see them at lunch. They are agreeable. Aware of dc and that HHC is ordered. No further questions. TC to Janee at [facility] to make aware of dc.
[2020-10-16 11:51] LABS: Bedside Glucose 138 mg/dL (70-110)
--- NOTE | 2020-10-16 12:40 | CHAPLAIN ---
Type of Pastoral Visit _x__ Initial Visit ___ Follow-up Visit ___ On-call Visit ___ General Patient Visit ___ Spiritual Assessment ___ Family Conference ___ Bereavement ___ Rapid Response ___ Code Blue ___ Other (describe below) Pastoral Care Referral From ___ Patient _x__ Family ___ Nurse ___ Physician ___ Marine Geologist ___ Caramel Cutter Helper ___ Other (describe below) Sacrament/Intervention _x__ Active listening ___ Anointing ___ Buddhist ___ Bereavement ___ Communion ___ Susana exploration ___ ___ Life review _x__ Prayer ___ Reconciliation ___ Sacrament of Sick _x__ Supportive presence ___ Wedding ___ Other (describe below) Pastoral Comments patient had difficulty staying awake after pain meds given; daughter is at bedside; did ask patient about her coping and support; prayer was welcomed; pt will be discharged soon after lunch
--- NOTE | 2020-10-16 13:21 | PCM.CONS.P ---
History of Present Illness Date of Consult: 10/16/20 Requesting physician: [] Primary care physician: Dr. Sandra Carter MD - History of Present Illness The patient is a 79 year old F who presented to the ED 10/14/2020 with vulvar pain, history of bladder cancer, transitional cell carcinoma of the kidney, and vulvovaginal carcinoma. Reported she had a 5-day history of progressive bilateral lower extremity edema, not really any pain. Also had dysuria, frequency, and intermittent hematuria which has been persistent for 6 months. Labs remarkable for leukocytosis, hypokalemia, and NATY on CKD stage III. She was admitted to the hospital for further evaluation and management. Urinalysis was obtained and showed mixed gram-positive organisms, likely contaminated. She had 5 of leukocyte and 30 protein, 150 occult blood. Also 1+ urate, rare bacteria, mild RBC and WBC. She was started on antibiotics. Lower extremity Doppler bilaterally was negative for DVT. While hospitalized, Actos was discontinued. She had a repeat CT of the abdomen that showed 2 right vulvar thick-walled cystic masses 2.9 cm anteriorly and 3.4 cm posteriorly with adjacent skin thickening and subcu edema. There was no bladder stone or wall thickening or hydronephrosis, no renal stones. There was suspicion of possible compression/distortion of the urethra and bladder from vulv ar mass. Patient takes fentanyl patch 50 mcg every 72 hours, oxycodone 5 to 10 mg p.o. every 6 hours as needed, and diazepam 5 mg as needed. She takes senna S for chronic constipation. Amitriptyline for sleep. Patient is a lifelong non-smoker. Irish was to be seen by palliative care of [place], however they are booked to 3 weeks out. She has significant needs and is agreeable to [facility] as long as communication is kept between us and her FINANCE ANALYST in [place]. Irish follows with Dr. Evans oncology and Dr. Henley for radiation oncologist. She uses [facility] for pharmacy. Patient is a DNR CCA and has a living will and DURABLE POWER OF RUNNING SPECIALIST, which is her daughter, Mya Dacosta. She also has a son Bird. She lives alone in a single-story house with 2 steps to enter with a rail. She is able to dress herself independently, however bathing is getting more difficult. She has family check on her on a daily basis. Her children transport her to her appointments. DME in the home include a wheeled walker, hospital bed, which she is not using, BSC, and a raised toilet seat. Irish does complain of bilateral inguinal pain and pelvic pain. She has inguinal lymphadenopathy, right greater than left, nontender. 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 Q72H 10/13/20 Bisacodyl [Dulcolax] 5 mg PO DAILY PRN #30 tablet 10/16/20 Lactose-Reduced Food [Ensure Clear] 120 ml PO TIDCM #30 liquid 10/16/20 Pioglitazone [Actos] 15 mg PO DAILY #0 10/16/20 Senna/Docusate Sodium [Senokot-S] 2 tablet PO BID #30 tablet 10/16/20 Allergies No Known Allergies Allergy (Verified 10/13/20 20:35) Maternal History Items: - - Her mother in a motor vehicle accidents when her mother was in her 40s Paternal History Items: Stroke - Social History Smoking Status: Never smoker Physical Exam Objective: Vital Signs Temp Pulse Resp BP Pulse Ox 98.5 F 85 14 141/77 H 94 10/16/20 08:47 10/16/20 08:47 10/16/20 08:47 10/16/20 08:47 10/16/20 08:47 Oxygen Delivery Method Room Air Weight: 71.1 kg Body Mass Index (BMI) 26.9 Intake and Output for Last 24 Hours 10/14/20 10/15/20 10/16/20 23:59 23:59 23:59 Intake Total 3217.75 / 3217.75 2615.00 / 2615.00 680 / 680 Output Total 900 / 900 900 / 900 Balance 2317.75 / 2317.75 1715.00 / 1715.00 680 / 680 Microbiology Past 72 Hours 10/13/20 22:39 Urine Culture - Final Interface Orders Mixed Gram Positive Organisms Laboratory Tests Past 24 Hrs 10/16/20 06:10 Sodium 135 L Potassium 3.7 Chloride 105 Carbon Dioxide 25.0 Anion Gap 5 BUN 18 Creatinine 1.13 H Estim Creat Clear Calc 33.72 Est GFR (MDRD) Af Amer 59 L Est GFR (MDRD) Non-Af 49 L BUN/Creatinine Ratio 15.9 Glucose 128 H Calcium 8.2 L Assessment/Plan All Active Problems Vulvar pain (Acute) Acute kidney injury (Acute) Cellulitis (Acute) Cystitis (Acute)
--- NOTE | 2020-10-17 15:16 | CASEMGMT ---
VINCE REYEZ Discharge Follow Up Phone Call: OLIVIA: Angelito Strata: 4 Call Date: 10.17.20 Discharge Date: 10.16.20 Time of Call: 1515 Duration: 3 min Admitting Dx: acute hemorrhagic cystitis VINCE REYEZ completed follow up phone call after recent hospitalization. Spoke to pt dtr Mya, states pt has been in bed all day. The HH nurse came out today and Palliative Care nurse is to come yet today. Pt was able to obtain rx without difficulty. They have decided not to do palliative radiation at this time. Follow up appts made. Dtr has no further questions or concerns at this time.
== END 2020-10-16 13:15 | disposition home health service (06) | DRG 684 ==
LOC: ED 23:13 → MS3 10-14 00:09
PROVIDERS: Admitting Provider Hospitalist; Emergency Provider Emergency Medicine; PCP Internal Medicine; Visit Provider Internal Medicine
DX: N17.9 Acute kidney failure, unspecified (principal); G89.3 Neoplasm related pain (acute) (chronic); E11.22 Type 2 diabetes mellitus with diabetic chronic kidney disease; N18.4 Chronic kidney disease, stage 4 (severe); I89.0 Lymphedema, not elsewhere classified; R31.0 Gross hematuria; C51.1 Malignant neoplasm of labium minus; E87.6 Hypokalemia; E11.65 Type 2 diabetes mellitus with hyperglycemia; R60.0 Localized edema; M79.89 Other specified soft tissue disorders; E83.42 Hypomagnesemia; E78.5 Hyperlipidemia, unspecified; K59.00 Constipation, unspecified; K21.9 Gastro-esophageal reflux disease without esophagitis; F41.9 Anxiety disorder, unspecified; Z79.84 Long term (current) use of oral hypoglycemic drugs; Z79.899 Other long term (current) drug therapy; Z85.51 Personal history of malignant neoplasm of bladder; Z85.528 Personal history of other malignant neoplasm of kidney
CPT/HCPCS: 36415; 71045; 74176; 80048; 80053; 81001; 82962; 83735; 83880; 84100; 84484; 85025; 85610; 85730; 87086; 87088; 93005; 93970; 99285; J7030; J7050; A4216; J7799